=== PATIENT | male | born 1975 ===

== ENCOUNTER → 2023-12-07 06:38 | Day surgery (SDC) | payer BC, SELFPAY | LOC: GI 06:38 | PROVIDERS: ATTENDING PHYSICIAN Surgery | DX: Z12.11 Encounter for screening for malignant neoplasm of colon (principal); K52.89 Other specified noninfective gastroenteritis and colitis; K63.5 Polyp of colon | CPT/HCPCS: 45380; 88305 ==

== ENCOUNTER 2024-06-05 16:57 | Emergency (ER) | payer BC, SELFPAY ==
[2024-06-05 17:06] VITALS: BP 158/103
[2024-06-05 17:40] LABS: % Basophils 1.3 % (0-2); % Eosinophils 3.4 % (0-6); % Immature Granulocytes 0.2 % (0-0.5); % Lymphocytes 39.9 % (20.5-51.1); % Monocytes 5.5 % (1.7-9.3); % Neutrophils 49.7 % (42.2-75.2); Absolute Basophils 0.1 10^3/uL (0-0.2); Absolute Eosinophils 0.3 10^3/uL (0-0.7); Absolute Lymphocytes 3.3 10^3/uL (1.2-3.4); Absolute Monocytes 0.5 10^3/uL (0.1-0.6); Absolute Neutrophils 4.1 10^3/uL (1.4-6.5); Hematocrit 47.4 % (39.0-52.0); Hemoglobin 17.1 g/dL (13.0-18.0); Mean Corp Hgb Conc. 36.1 g/dL (33.0-37.0); Mean Corpuscular Hgb 29.8 pg (27.0-31.0); Mean Corpuscular Volume 82.7 fL (80.0-94.0); Mean Platelet Volume 12.3 fL (7.4-10.4); Nucleated Red Blood Cells % 0 % (-); Platelet Count 242 10^3/uL (130-400); Red Blood Cell Count 5.73 10^6/uL (4.70-6.10); White Blood Cell Count 8.2 10^3/uL (4.8-10.8)
--- NOTE | 2024-06-05 17:46 | ED.GENMED ---
History of Present Illness
General
Chief Complaint: Headache
Time Seen by Provider: 06/05/24 17:46
History of Present Illness
History of Present Illness:
HPI: The patient presents with headache located in the right temporal region which started about 6 days ago. 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 He had gradual onset and progression of the symptoms. The day later,
he developed left-sided chest discomfort which is extremely sensitive to touch and even having a short arm can hurt at times. He does have known diffuse lipomas and wondered if that was a contributing factor. He went to urgent care and they
thought maybe he could have shingles but did not have a rash. They did place him on an antiviral. He has had poor sleep recently.
EXAM:
GENERAL: Well appearing in no distress
HEENT: Moist oral mucosa
CARDIOVASCULAR: No murmurs, normal heart rate, regular rhythm, No chest wall tenderness
PULMONARY: No respiratory distress, breath sounds are clear and equal
ABDOMEN: Soft with no peritoneal signs, no tenderness
NEUROLOGIC: Excellent strength all extremities, no coordination deficits
PSYCHIATRIC: Appropriate mental status, normal insight and judgement
EXTREMITIES: Nontender, no edema, moves all extremities equally
SKIN: Multiple lipomas noted predominantly to the upper extremities but also involves the torso, no evidence of shingles type of rash
TIME OF INITIAL ENCOUNTER: 6 PM
NUMBER AND COMPLEXITY OF PROBLEMS ADDRESSED AT THE ENCOUNTER
� Chronic conditions affecting care: Asthma, multiple lipomas
� Acute Exacerbation and/or Progression of Chronic Illness: This is an acute problem
� Differential Diagnosis includes: Viral syndrome, shingles, neuropathic type of pain, intracranial abnormality
AMOUNT AND/OR COMPLEXITY OF DATA TO BE REVIEWED AND ANALYZED
� I performed an independent evaluation of and my interpretation is:
EKG: Sinus 72, normal axis, no acute ST abnormality
CT: CT head shows no acute abnormality
X-rays:
Laboratory Studies: CBC is unremarkable, chemistries unremarkable
Other:
� Review of other/old records:
� Clinical information was obtained by an independent historian: I spoke to the at bedside
� Prescriptions/Medications Considered but not given:
� Further testing considered but not performed:
RISK OF COMPLICATIONS AND/OR MORBIDITY OR MORTALITY OF PATIENT MANAGEMENT
� Social determinants of health affecting care: Lives at home
� Discussion with other providers:
� Escalation of care including admission/observation vs risk of discharge considered: The patient describes chest discomfort on the left side that is present and worsened by very light touch. He was already started on Valtrex
for the possibly of shingles however he also describes pain on both sides as well as pain in the right side of the head. He did have right temporal pain and sed rate was normal at 5. We tried gabapentin for pain. I did send a prescription for
gabapentin to his pharmacy. The patient reports no significant improvement after gabapentin tried. We had long discussion with patient. Will add very short course of narcotic analgesia and will start steroids in the morning. He seems to have
paresthesias in various parts of his body including the torso and the extremities primarily the upper extremities. CT imaging of the brain was unremarkable.
Past History
Past History
ED Past Medical History: Asthma; Negative HTN, Hypercholesterolemia or NIDDM
ED Past Surgical History: None
Social History
Tobacco: Non-smoker
Alcohol: None
Personal:
Living: with family
Employment: Employed
Phy Exam
Physical Exam
Physical Exam:
See HPI
Course
Orders/Labs/Results
Orders:
Orders
06/05/24 17:13
ECG [Electrocardiogram (*1)] Urgent
Reason for Study: Chest Pain
06/05/24 17:14
EKG- Treatment ONCE
06/05/24 17:21
Complete Blood Count/With Diff Urgent
Comprehensive Metabolic Panel Urgent
Erythrocyte Sed Rate Urgent
Comment: ADD ON
Troponin I Urgent
06/05/24 17:52
Add On- LAB Urgent
Tests Added?: ESR
06/05/24 17:59
CT Head W/o Iv Contrast Urgent
Comment:
Reason For Exam: new STYLES and paresthesias
Gabapentin [Neurontin] 300 mg PO NOW STA
06/05/24 21:27
Oxycodone/Acetaminophen [Percocet 5/325] 1 tablet PO NOW STA
Abnormal Lab Results
06/05/24
17:21
MPV 12.3 H fL
(7.4-10.4)
Glucose 109 H mg/dl
(70-99)
06/05/24 17:21
06/05/24 17:21
Vital Signs
Initial and Last Documented VS:
Initial Vital Signs
Temp Pulse Resp BP Pulse Ox
98.3 F 99 18 158/103 98
06/05/24 17:06 06/05/24 17:06 06/05/24 17:06 06/05/24 17:06 06/05/24 17:06
Last Documented Vital Signs
Temp Pulse Resp BP Pulse Ox
98.3 F 85 18 150/107 98
06/05/24 17:06 06/05/24 21:51 06/05/24 21:51 06/05/24 21:51 06/05/24 17:06
*Critical Care Note
Total Time (30-74mins, 75-104mins- exclusive of procedures): Not Applicable
ED Attending Note
-
Portions of this chart may have been created with voice recognition software.� Occasional wrong word or��sound alike� substitutions may have occurred due to the inherent limitations of voice recognition software.
Discharge Plan
Departure
Patient Disposition: Home (Routine Discharge)
Date of Disposition: 06/05/24
Time of Disposition: 21:08
Patient with high blood pressure during this ER visit?: Yes
Discharge Problem:
Chest wall pain, Headache
Prescriptions:
New
gabapentin 300 mg capsule
300 mg PO TID Qty: 30 0RF
oxycodone-acetaminophen 5-325 mg tablet
1 - 2 tab PO Q8H PRN (Reason: Pain) Qty: 12 0RF
prednisone 50 mg tablet
50 mg PO DAILY Qty: 5 0RF
No Action
metaxalone [Skelaxin] 800 MG tablet
800 mg PO TIDPRN PRN (Reason: pain/spasm) Qty: 12 0RF
Referrals:
Elly Rabago DO [Family Provider] -
Activity Restrictions/Additional Instructions:
The cause of your symptoms is unclear. CAT scan of the brain shows no acute abnormality. Basic blood work is normal. I did send a prescription for gabapentin to your pharmacy. Gabapentin can be sedating I recommend not to drive if you take
gabapentin. I also sent a prescription for Percocet and prednisone. Follow-up your primary care doctor. Return here if worse.
Interventions
Interventions:
*Risk Screen - Suicide Last Done: 06/05/24 17:06
*General Assessment Last Done: 06/05/24 17:06
*Neglect/Abuse Screening Last Done: 06/05/24 17:06
ED- Fall Risk Assessment Last Done: 06/05/24 17:53
*Nursing Disposition Last Done: 06/05/24 21:51
ED- Neurological Assessment Last Done: 06/05/24 17:53
Discharge Date and Time
Discharge Date/Time: 06/05/24 21:52
Print Language: GREENLANDIC
[2024-06-05 17:56] LABS: ALT (SGPT) 39 U/L (0-50); AST (SGOT) 37 U/L (17-59); Albumin 4.5 g/dl (3.5-5.0); Alkaline Phosphatase 88 U/L (38-126); Blood Urea Nitrogen 13 mg/dl (9-20); Calcium 9.7 mg/dl (8.4-10.2); Carbon Dioxide 30 mmol/L (22-30); Chloride 100 mmol/L (98-107); Glucose 109 mg/dl (70-99); Potassium 4.6 mmol/L (3.5-5.1); Sodium 142 mmol/L (135-145); Total Bilirubin 0.5 mg/dl (0.2-1.3); Total Protein 7.6 g/dl (6.3-8.2); eGFR > 60.00
[2024-06-05 18:00] VITALS: BP 162/93
[2024-06-05] MEDS: NEURONTIN 300 MG PO (18:04)
[2024-06-05 18:07] LABS: Troponin I < 0.012 ng/ml
[2024-06-05 18:21] LABS: Erythrocyte Sed Rate 5 mm/hour (0-20)
[2024-06-05] MEDS: PERCOCET 5/325 1 TABLET PO (21:39)
[2024-06-05 21:51] VITALS: BP 150/107
== END 2024-06-05 21:52 | disposition home or self-care (01) ==
LOC: EMR 16:57
PROVIDERS: Emergency Medicine; EMERGENCY PHYSICIAN Emergency Medicine; FAMILY PHYSICIAN Family Medicine
DX: R07.89 Other chest pain (principal); R51.9 Headache, unspecified; R20.2 Paresthesia of skin; R03.0 Elevated blood-pressure reading, without diagnosis of hypertension; J45.909 Unspecified asthma, uncomplicated
CPT/HCPCS: 99284; 70450; 80053; 84484; 85025; 85652; 93005

== ENCOUNTER 2024-06-14 08:49 | Inpatient (IN) | payer BC, SELFPAY ==
[2024-06-11 18:17] VITALS: BP 160/103
[2024-06-11 18:44] LABS: % Basophils 0.8 % (0-2); % Eosinophils 1.9 % (0-6); % Immature Granulocytes 0.7 % (0-0.5); % Lymphocytes 28.6 % (20.5-51.1); % Monocytes 5.9 % (1.7-9.3); % Neutrophils 62.1 % (42.2-75.2); Absolute Basophils 0.1 10^3/uL (0-0.2); Absolute Eosinophils 0.2 10^3/uL (0-0.7); Absolute Immature Granulocytes 0.1 10^3/uL (0-0.05); Absolute Lymphocytes 3.4 10^3/uL (1.2-3.4); Absolute Monocytes 0.7 10^3/uL (0.1-0.6); Absolute Neutrophils 7.5 10^3/uL (1.4-6.5); Hematocrit 49.2 % (39.0-52.0); Hemoglobin 17.8 g/dL (13.0-18.0); Mean Corp Hgb Conc. 36.2 g/dL (33.0-37.0); Mean Corpuscular Hgb 29.6 pg (27.0-31.0); Mean Corpuscular Volume 81.7 fL (80.0-94.0); Mean Platelet Volume 11.4 fL (7.4-10.4); Nucleated Red Blood Cells % 0 % (-); Platelet Count 282 10^3/uL (130-400); Red Blood Cell Count 6.02 10^6/uL (4.70-6.10); Red Cell Dist. Width 13.2 % (11.5-14.5)
[2024-06-11 19:07] LABS: ALT (SGPT) 142 U/L (0-50); AST (SGOT) 97 U/L (17-59); Albumin 4.4 g/dl (3.5-5.0); Alkaline Phosphatase 105 U/L (38-126); Blood Urea Nitrogen 22 mg/dl (9-20); Calcium 9.1 mg/dl (8.4-10.2); Carbon Dioxide 25 mmol/L (22-30); Chloride 97 mmol/L (98-107); Glucose 110 mg/dl (70-99); Potassium 4.1 mmol/L (3.5-5.1); Sodium 137 mmol/L (135-145); Total Bilirubin 0.5 mg/dl (0.2-1.3); Total Protein 7.6 g/dl (6.3-8.2); eGFR > 60.00
[2024-06-11 22:10] VITALS: BP 161/103
--- NOTE | 2024-06-11 22:34 | ED.GENMED ---
History of Present Illness
<RASHAUN Huff - Last Filed: 06/12/24 03:33>
General
Chief Complaint: Generalized Pain
Source: patient and spouse
Exam Limitations: none
Time Seen by Provider: 06/11/24 22:14
History of Present Illness
History of Present Illness:
This is a 48 year old male that comes in with c/o pain in the arms and leg and body. states that on May 30 he started with a headache. State that this continued on the and . States that on Tuesday he started with itching on the
left shoulder and chest. States that he would feel hot and cold. States that he also felt like something was dripping form the right eye. States that he went to and he was given Antivirals which he finished yesterday. Stats that he is not better.
States that he has this burning in his arm and tingling in the hands. State that on Tuesday he went to see the PCP and was told to come to the ER. States that he was given pain medication and place on Gabapentin and a steroid taper. State that he
was also given Percocet. States that the Percocet helped at first and then it would not last as long. States that he gets hot flashes in his legs and chest. States that his arms feel like he has had his hands in cold water and they hurt when you
touch them. States that he does have a right sided headache. Denies any fever, chills, chest pain, SOB, abd pain, nausea, vomiting, diarrhea, dizziness, urinary burning.
Past History
<RASHAUN Huff - Last Filed: 06/12/24 03:33>
Past History
ED Past Medical History: Asthma; Negative HTN, Hypercholesterolemia or NIDDM
ED Past Surgical History: Other (Lipoma removed)
Social History
Tobacco: Non-smoker
Alcohol: None
Personal:
Living: with family
Employment: Employed
Review of Systems
<RASHAUN Huff - Last Filed: 06/12/24 03:33>
Review of Systems
All Other Systems: ROS reviewed and negative except as documented in HPI and ROS
Constitutional: Reports no symptoms; Denies fever or chills
EENT: Reports no symptoms
Respiratory: Reports no symptoms; Denies cough or trouble breathing
Cardiac: Reports no symptoms; Denies chest pain
ABD/GI: Reports no symptoms; Denies abdominal pain, nausea, vomiting or diarrhea
: Reports no symptoms; Denies dysuria, frequency or urgency
Musculoskeletal: Reports no symptoms
Skin: Reports other (arms and leg get hot flashes and hands feel like they have been in ice water. States that the skin on his chest hurts. )
Neurological: Reports headache; Denies dizzy
Psychiatric: Reports no symptoms
Phy Exam
<RASHAUN Huff - Last Filed: 06/12/24 03:33>
General Physical Exam
General Presentation: mild distress
General age: appears stated age
General Skin: warm and dry
General Habitus: normal
General Mental: alert
General Hydration: dry mucous membranes
ENT Exam
ENT Exam: TM's normal, pharynx normal and neck supple
Eye Exam
Eye Exam: EOMI
Cardiovascular Exam
Cardiovascular Exam: regular rate/rhythm, no edema, no murmur and normal peripheral pulses
Pulmonary Exam
Pulmonary Exam: lungs clear, no respiratory distress, no rales, chest non tender, no crackles, no rhonchi, no wheezing and no cough
Gastrointestinal Exam
Gastrointestinal Exam: normal bowel sounds, non tender, soft, no organomegaly, no pulsatile mass and non distended
Musculoskeletal Exam
Musculoskeletal Exam: full ROM and no edema
Skin Exam
Skin Exam: normal color, warm/dry, no rash and no petechia
Psychiatric Exam
Psychiatric Exam: normal mood/affect
Course
<RASHAUN Huff - Last Filed: 06/12/24 03:33>
Orders/Labs/Results
Orders:
Orders
06/11/24 18:15
Electrocardiogram (*1) Urgent
Reason for Study: Chest Pain
EKG- Treatment ONCE
06/11/24 18:28
Complete Blood Count/With Diff Urgent
Comprehensive Metabolic Panel Urgent
06/11/24 22:34
0.9% Sodium Chloride 1000 ml [Nss] 1,000 ml IV BOLUS
Gabapentin [Neurontin] 300 mg PO NOW STA
HYDROmorphone [Dilaudid] 1 mg IV NOW STA
06/11/24 23:14
Alcohol Urgent
COVID-19 Antigen Urgent
Source: Nasal Swab
CPK [Creatine Phosphokinase] Urgent
CRP [C-Reactive Protein] Urgent
Drug Screen, Urine [Urine Drug Abuse Screen] Urgent
Date Specimen was Collected: 06/11/24
Time Specimen was Collected: 23:06
ESR [Erythrocyte Sed Rate] Urgent
Fentanyl, Urine Urgent
TSH Reflex To Free T4 Urgent
Urinalysis Reflex To Culture Urgent
Date Specimen was Collected: 06/11/24
Time Specimen was Collected: 23:06
06/12/24 00:15
Ct Chest/Abd/Pel Angio W/Wo Iv Urgent
Reason For Exam: Generalized body pain, Tingling
06/12/24 02:21
Troponin I Urgent
06/12/24 02:29
HydrALAZINE [Apresoline] 5 mg IV NOW STA
Abnormal Lab Results
06/11/24 06/11/24
18:28 23:14
WBC 12.0 H 10^3/uL
(4.8-10.8)
MPV 11.4 H fL
(7.4-10.4)
Abs Immat Gran (auto) 0.1 H 10^3/uL
(0-0.05)
Absolute Neuts (auto) 7.5 H 10^3/uL
(1.4-6.5)
Absolute Monos (auto) 0.7 H 10^3/uL
(0.1-0.6)
Immature Gran % 0.7 H %
(0-0.5)
Chloride 97 L mmol/L
(98-107)
BUN 22 H mg/dl
(9-20)
Glucose 110 H mg/dl
(70-99)
AST 97 H U/L
(17-59)
ALT 142 H U/L
(0-50)
Creatine Kinase 50 L U/L
(55-170)
Ur Oxycodone Screen Positive H
(Negative)
06/11/24 18:28
06/11/24 18:28
Leukocytosis, Dehydration. Glucose nonfasting. AST/ALT elevation. when compared with prior labs, CRP normal at 9.70, Sed rate normal t 7, CPK slightly elevated. TSH normal at 2.07, Urine negative for infection. Urine is negative for infection,
Urine drug positive for Oxycodone (patient has been taking at home), Fentanyl negative, Negative for alcohol COVID negative.
Vital Signs
Initial and Last Documented VS:
Initial Vital Signs
Temp Pulse Resp BP Pulse Ox
98.4 F 106 16 160/103 98
06/11/24 18:17 06/11/24 18:17 06/11/24 18:17 06/11/24 18:17 06/11/24 18:17
Last Documented Vital Signs
Temp Pulse Resp BP Pulse Ox
99.6 F 91 12 159/104 96
06/11/24 23:50 06/12/24 02:20 06/12/24 02:20 06/12/24 02:20 06/12/24 02:20
<Tylor Dumont MD - Last Filed: 06/11/24 23:05>
Orders/Labs/Results
Orders:
Orders
06/11/24 18:15
Electrocardiogram (*1) Urgent
Reason for Study: Chest Pain
EKG- Treatment ONCE
06/11/24 18:28
Complete Blood Count/With Diff Urgent
Comprehensive Metabolic Panel Urgent
06/11/24 22:34
0.9% Sodium Chloride 1000 ml [Nss] 1,000 ml IV BOLUS
Gabapentin [Neurontin] 300 mg PO NOW STA
HYDROmorphone [Dilaudid] 1 mg IV NOW STA
06/11/24 23:14
Alcohol Urgent
COVID-19 Antigen Urgent
Source: Nasal Swab
CPK [Creatine Phosphokinase] Urgent
CRP [C-Reactive Protein] Urgent
Drug Screen, Urine [Urine Drug Abuse Screen] Urgent
Date Specimen was Collected: 06/11/24
Time Specimen was Collected: 23:06
ESR [Erythrocyte Sed Rate] Urgent
Fentanyl, Urine Urgent
TSH Reflex To Free T4 Urgent
Urinalysis Reflex To Culture Urgent
Date Specimen was Collected: 06/11/24
Time Specimen was Collected: 23:06
06/12/24 00:15
Ct Chest/Abd/Pel Angio W/Wo Iv Urgent
Reason For Exam: Generalized body pain, Tingling
06/12/24 02:21
Troponin I Urgent
06/12/24 02:29
HydrALAZINE [Apresoline] 5 mg IV NOW STA
Abnormal Lab Results
06/11/24 06/11/24
18:28 23:14
WBC 12.0 H 10^3/uL
(4.8-10.8)
MPV 11.4 H fL
(7.4-10.4)
Abs Immat Gran (auto) 0.1 H 10^3/uL
(0-0.05)
Absolute Neuts (auto) 7.5 H 10^3/uL
(1.4-6.5)
Absolute Monos (auto) 0.7 H 10^3/uL
(0.1-0.6)
Immature Gran % 0.7 H %
(0-0.5)
Chloride 97 L mmol/L
(98-107)
BUN 22 H mg/dl
(9-20)
Glucose 110 H mg/dl
(70-99)
AST 97 H U/L
(17-59)
ALT 142 H U/L
(0-50)
Creatine Kinase 50 L U/L
(55-170)
Ur Oxycodone Screen Positive H
(Negative)
06/11/24 18:28
06/11/24 18:28
Vital Signs
Initial and Last Documented VS:
Initial Vital Signs
Temp Pulse Resp BP Pulse Ox
98.4 F 106 16 160/103 98
06/11/24 18:17 06/11/24 18:17 06/11/24 18:17 06/11/24 18:17 06/11/24 18:17
Last Documented Vital Signs
Temp Pulse Resp BP Pulse Ox
99.6 F 91 12 159/104 96
06/11/24 23:50 06/12/24 02:20 06/12/24 02:20 06/12/24 02:20 06/12/24 02:20
<RASHAUN Huff - Last Filed: 06/12/24 03:33>
MDM/Problems Addressed
Differential Diagnosis Includes:
Nerve pain, Guillain barre syndrome
MDM/Problems Addressed:
This is a 47 year old male that comes in with c/o his arms, chest sensitive and his legs have hot flashes but no pain. states that this started on May 30. Patient has been seen here and by his PCP. States that he took Percocet, Antiviral which
he finished and Prednisone taper. States that nothing has helped.
Will get labs, Medicate for pain and have. Dr. Dumont see patient.
Back into see patient. Explained that his CT is normal. His Blood work shows that his liver enzymes have elevated. Explained that this may be a viral syndrome and he may just have to wait it out. Patient states that his pain is coming back. Offered
patient observation tonight or he could go home and wait this out. Patient states that since his pain is coming back he would rather stay. Hospitalist notified.
Chronic conditions affecting care:
NA
Acute Exacerbation and/or Progression of Chronic Illness:
NA
<RASHAUN Huff - Last Filed: 06/12/24 03:33>
*Radiology
Radiology exam reviewed: radiology read reviewed (CT night hawk-NO definite CT findings to account for the reported pain symptomes. Ateleactasis versus scarring at the right lower lobe. NO focal airspace consolidation. No pleural effusion or
pneumothorax. No appendicitis or colitis. No evidence of small bowel obstruction. No free fluid or free air.) and all reviewed NAD by ED Provider (CT cont- Mild distention of the gallbladder without surrounding inflammatory change. Normal caliber
CBD. Unremarkable appearance of the pelvic Viscera. No AAA. Degenerative changes in the hips. )
*Pulse Oximetry
Patient hypoxic: no
*EKG
Interpreted by ED Provider?: NA
Rate: EKG- N/A
*Robotics Mechanic Interpretation
Rate: Robotics Mechanic- N/A
*Critical Care Note
Total Time (30-74mins, 75-104mins- exclusive of procedures): Not Applicable
ED Attending Note
<RASHAUN Huff - Last Filed: 06/12/24 03:33>
-
Portions of this chart may have been created with voice recognition software.� Occasional wrong word or��sound alike� substitutions may have occurred due to the inherent limitations of voice recognition software.
<Tylor Dumont MD - Last Filed: 06/11/24 23:05>
ED Attending Note
Patient seen and examined by attending physician: Yes
ED Attending Note:
I have seen and evaluated the patient with a [id number] encounter. I have spoken to the advance practicer provider and involved in the medical history, the physical exam, medical decision making.
Evaluation and management service: agree unless noted differently below.
Results interpretation: agree unless noted differently below.
Focused HPI: 48-year-old male with a past medical history of asthma who presents to the emergency room for evaluation of whole body pain. This is patient's second visit to the emergency room for this issue (here 06/05/2024). Patient reports onset of
symptoms 05/30/2024 and have been constant and progressive since then. He reports that symptoms initially started while he was at work�he says he had a stressful meeting and then went to the dentist office and then afterwards had right
sided headache. He says that and Tuesday headache persisted and he tried treating with NSAIDs without any improvement. Tuesday he began to have 'itchy' sensation under his left scapula which eventually progressed to pain in the area as
well as pain on his chest which he describes as 'on the skin' right over his sternum. He says he also started to have shooting pains in the right eyebrow. He says that 06/03/2024 he began having sensation of pain, numbness and paresthesias
in both arms�'like they are freezing cold.' Decided to go to urgent care to be evaluated and he says that he was told that his symptoms could be from early shingles. He was started on Valtrex. He took Valtrex and symptoms actually worsened he
began having essentially whole body paresthesias and pain/sensitivity. He began having hot flashes he says. On 06/05/2024 he went to his primary care physician and was referred to the ER to be evaluated. Here he had EKG, lab work, CT head
which was nondiagnostic. He was urged to finish course of Valtrex was prescribed gabapentin and oxycodone as well as a short course of prednisone 50 mg x 5 days. He says that the oxycodone did manage his pain reasonably well but paresthesias
persisted; he says that efficacy of opioids has decreased and he feels symptoms overall are worsening and so he returns to the emergency room this evening. In summary primary symptoms are: Right sided headache, superficial chest/left scapular pain,
whole body paresthesias and sensation of numbness most pronounced in the upper extremities. He denies any rash. He denies feeling short of breath. He says he has been constipated from oxycodone, no nausea, vomiting, diarrhea. He denies any
urinary symptoms. He has been regularly checking his skin for rash and has not noticed any rash. While he does have paresthesias and numbness he denies feeling weak at all extremities and has been ambulatory without weakness. He denies any loss
of vision, speech difficulties. He denies any fevers or chills although again describes occasional 'hot flashes.' He denies any similar symptoms in the past. He denies smoking, alcohol, drug use. He does not take any chronic medications.
Physical exam: Patient appears uncomfortable, tremulous and restless in the bed complaining of pain. He is hypertensive and tachycardic. Afebrile, normal respiratory rate, normal pulse ox on room air. He has no audible cardiac rubs gallops or
murmurs; he has equal strong palpable symmetric pulses bilaterally radial, femoral, DP and PT. His lungs are clear to auscultation bilaterally. He has no abdominal masses and no reproducible tenderness in the abdomen. His cranial nerves are
intact, motor function intact in all extremities. He reports diminished sensation subjectively throughout all extremities no focal sensory deficit noted.
Medical Decision Makin-year-old male presents for evaluation of symptoms as described above. Symptoms have been ongoing for 2 weeks now and generally worsening. Had CT head as his initial presenting symptom was headache and this was negative.
Also had EKG and troponins which were unremarkable. Vital signs are abnormal he is notably hypertensive here, was hypertensive during prior visit as well--likely pain related but with odd distribution of symptoms and report of chest pain and pain
in the rest of the body will rule out for dissection with CTA chest/abdomen/pelvis. Send labs including a CBC and a CMP, CPK, ESR, CRP, thyroid studies. Swab for COVID. Treat symptoms. Reassess after the above.
Discharge Plan
Departure
Patient Disposition: Admit
Date of Disposition: 06/12/24
Time of Disposition: 02:23
Admit to: Med/Surg
Presentation/result/management discussed w/ accepting MD/DO: Hospitalist
Patient with high blood pressure during this ER visit?: Yes
Condition: Good
Covid-19: Negative COVID-19
Discharge Problem:
GENERALIZED BODY PAIN
Prescriptions:
No Action
prednisone 50 mg tablet
50 mg PO DAILY Qty: 5 0RF
oxycodone-acetaminophen 5-325 mg tablet
1 - 2 tab PO Q6H
gabapentin 300 mg capsule
600 mg PO TID
Referrals:
Elly Rabago DO [Family Provider] -
Interventions
Interventions:
*Risk Screen - Suicide Last Done: 06/11/24 21:13
*General Assessment Last Done: 06/11/24 21:53
*Neglect/Abuse Screening Last Done: 06/11/24 21:13
ED- Fall Risk Assessment Last Done: 06/11/24 21:50
*ED COVID-19 Vaccine History Last Done: 06/11/24 21:53
ED- Neurological Assessment Last Done: 06/11/24 23:10
Discharge Date and Time
Print Language: HUNGARIAN
[2024-06-11] MEDS: DILAUDID 1 MG IV (23:31)
[2024-06-11] MEDS: NEURONTIN 300 MG PO (23:31)
[2024-06-11] MEDS: NSS 1000 IV (23:32)
[2024-06-11 23:57] LABS: Urine Albumin Negative (Neg - Trace); Urine Bilirubin Negative (Negative); Urine Character Clear (Clear); Urine Color Straw; Urine Glucose Negative (Negative); Urine Ketone Negative (Negative); Urine Leukocyte Negative (Negative); Urine Nitrite Negative (Negative); Urine Occult Blood Negative (Negative); Urine Urobilinogen Negative (Neg - 1+)
[2024-06-12] VITALS (7 sets, daily range): BP systolic 126–163; BP diastolic 71–104; BMI 29.3
[2024-06-12 00:05] LABS: COVID-19 Antigen Negative (Negative)
[2024-06-12 00:11] LABS: Amphetamines Negative (Negative); Barbiturates Negative (Negative); Benzodiazepines Negative (Negative); Buprenorphine Negative (Negative); Cocaine Negative (Negative); Marijuana Negative (Negative); Methadone Negative (Negative); Methamphetamines Negative (Negative); Opiates Negative (Negative); Phencyclidine Negative (Negative); Tricyclic Antidepressants Negative (Negative)
[2024-06-12 00:31] LABS: Fentanyl, Urine Negative (Negative)
[2024-06-12 00:47] LABS: TSH Reflex To Free T4 2.07 uIU/ml (0.47-4.68)
[2024-06-12 01:02] LABS: Creatine Phosphokinase 50 U/L (55-170)
[2024-06-12 01:03] LABS: Alcohol None Detected
[2024-06-12 01:12] LABS: Erythrocyte Sed Rate 7 mm/hour (0-20)
[2024-06-12] MEDS: APRESOLINE 5 MG IV (03:42)
--- NOTE | 2024-06-12 03:51 | HPS.HSE ---
Family Physician
-
Family Physician: Elly Rabago DO
Chief Complaint
-
Pain
History of Present Illness
Patient is a 48y M with PMH significant for familial lipomatosis who presents to ED complaining of pain syndrome. Patient states that he started with a R sided headache about 2 weeks ago. The pain radiated towards his R eye and R cheek. He
took Motrin and Tylenol without any improvement in his symptoms. He then developed itching and then pain in the L posterior shoulder / scapula area. This pain then radiated around to his L chest. He presented to an Urgent Care and was placed on
Valtrex for presumed shingles. His symptoms did not improve.
He has since developed similar shooting pains in the arms bilaterally (L > R), the abdomen and - less frequently - in the legs.
He describes severe, shooting pain when it occurs. He reports significant sensitivity of the skin and notes that clothing, sheets, etc are unbearable due to the degree of sensitivity.
He describes a flushed / warm sensation that seems to precede the pain. He reports occasional sense of tingling / numbness in the arms bilaterally.
Patient was seen here in the ED on 06/05/24 for these complaints. He was discharged on gabapentin Percocet and prednisone.
His evaluation at that time including CT head and ESR was unremarkable.
Patient returns to the ED today complaining of persistent symptoms. He states that the gabapentin appears unhelpful. His pain does improve after taking the Percocet - but recurs again after 5-6 hours.
He has no rashes. No fevers / chills. No vision changes.
Medical History
Past Medical History
Past Medical History: Reports Other
Additional Past Medical History:
Familial Lipomatosis
Past Surgical History: Reports Other
Additional Past Surgical History:
Lipoma Excisions
Social History
Tobacco: Non-smoker
Alcohol: None
Drug: None
Family History
Family History: Other (Familial Lipomatosis)
Allergies / Home Medications
Allergies reflects when Allergies were last updated in [facility].
Home Medications with original date entered in [facility]
Allergy/Medication List:
Allergies
Allergy/AdvReac Type Severity Reaction Status Date / Time
No Known Allergies Allergy Verified 06/11/24 18:21
Home Medications
prednisone 50 mg tablet 50 mg PO DAILY #5 tabs 06/05/24
gabapentin 300 mg capsule 600 mg PO TID 06/12/24
oxycodone-acetaminophen 5 mg-325 mg tablet 1 - 2 tab PO Q6H 06/12/24
Review of Systems
-
History Source: Patient
A 12 point ROS was completed and negative except as noted: Yes
Constitutional: Reports Sleep Disturbance; Denies Fever or Chills
Respiratory: Denies Cough or Trouble Breathing
Cardiac: Reports Chest Pain; Denies Palpitations
Abdomen/GI: Reports Abdominal Pain; Denies Nausea, Vomiting or Diarrhea
: Denies Dysuria, Frequency or Flank Pain
Musculoskeletal: Denies Joint Pain or Edema
Skin: Reports Itching; Denies Rash
Neurological: Reports Headache and Numbness; Denies Dizzy or Weakness
Psych: Denies Depression or Anxiety
Physical Exam
Vital Signs
Vital Signs
Temp Pulse Resp BP Pulse Ox
99.6 F 104 12 156/99 96
06/11/24 23:50 06/12/24 03:42 06/12/24 02:20 06/12/24 03:42 06/12/24 02:20
Physical Exam
General: Other (48y M in no acute distress.)
HEENT: Moist mucous membranes and PERRLA
Respiratory: Clear; No Wheezes, Rales or Rhonchi
Cardiac: S1/S2 and Regular Rhythm; No Murmur
GI: Soft, Non Tender, Non Distended and Normal Bowel Sounds
Musculoskeletal: No Clubbing, No Cyanosis and No Edema
Skin: Other (Scattered lipomas over primarily the extremities. No vesicular rash / pustular lesions.)
Neuro: AO x 3 and Nonfocal/grossly intact
Laboratory Results
-
06/11/24 18:28
06/11/24 18:
Laboratory Results
Total Bilirubin 0.5 mg/dl (0.2-1.3) 06/11/24 18:28
AST 97 U/L (17-59) H 06/11/24 18:28
ALT 142 U/L (0-50) H 06/11/24 18:28
Alkaline Phosphatase 105 U/L (38-126) 06/11/24 18:
Impression/Plan
-
A/P: Patient is a 48y M with PMH significant for familial lipomatosis who presents to ED complaining of about 10 days of progressive pain / dysesthesia.
Dysesthesia
Headache
- Observe overnight for further evaluation and treatment.
- Work-up thus far has been unremarkable - including inflammatory markers, CT head and CTA C/A/P.
- Patient notes that pain is controlled only with Percocet and only temporarily.
- Wide distribution of symptoms that seems to be progressing / increasing with time - but in a 'top-down' fashion.
- Continue supportive care. Pain control as needed - but patient aware that detention opioids is not a solution.
- Trial of duloxetine for symptoms improvement.
- Neurology evaluation for any additional recommendations / work-up.
- Patient notes that he had MRI of his back done at [facility] about one month ago - will send for those results.
DVT Prophylaxis: Lovenox
Code Status: Full
[2024-06-12] MEDS: ROXICODONE 10 MG PO ×4 (03:53→21:48)
[2024-06-12 04:37] LABS: Troponin I 0.019 ng/ml
--- NOTE | 2024-06-12 06:40 | TRANSFER ---
received pt from ED via stretcher. pt walked to his bed. oriented to room, call norris within reach, VSS. plan of care ongoing.
[2024-06-12 07:29] LABS: Hematocrit 47.2 % (39.0-52.0); Hemoglobin 16.9 g/dL (13.0-18.0); Mean Corp Hgb Conc. 35.8 g/dL (33.0-37.0); Mean Corpuscular Hgb 30.1 pg (27.0-31.0); Mean Corpuscular Volume 84.1 fL (80.0-94.0); Mean Platelet Volume 11.6 fL (7.4-10.4); Platelet Count 229 10^3/uL (130-400); Red Blood Cell Count 5.61 10^6/uL (4.70-6.10); Red Cell Dist. Width 13.2 % (11.5-14.5); White Blood Cell Count 8.8 10^3/uL (4.8-10.8)
[2024-06-12] MEDS: CYMBALTA DELAYED RELEASE 30 MG PO (07:47)
[2024-06-12] MEDS: TORADOL 15 MG IV (07:48)
[2024-06-12 07:58] LABS: Blood Urea Nitrogen 14 mg/dl (9-20); Calcium 8.9 mg/dl (8.4-10.2); Carbon Dioxide 27 mmol/L (22-30); Chloride 100 mmol/L (98-107); Estimated Creatinine Clearance 115 ml/min; Glucose 122 mg/dl (70-99); Potassium 3.9 mmol/L (3.5-5.1); Sodium 138 mmol/L (135-145); eGFR > 60.00
[2024-06-12] MEDS: DILAUDID 0.25 MG IV ×3 (08:50→18:15)
[2024-06-12 09:14] LABS: Glycohemoglobin (HgbA1c) 5.4 % (4.0-5.6)
--- NOTE | 2024-06-12 12:16 | CON.NEURO4 ---
Consultation - Neurology 4
-
CONSULTING PHYSICIAN: Carmella
REFERRING PHYSICIAN: hospitalist
DICTATED BY: Carmella
DATE/TIME OF REQUEST: 06/12/24 in am
DATE/TIME OF CONSULTATION: 06/12/24 at 1130
Reason for Consultation: pain
History of Present Illness:
48 year-old male with a history of LBP and familial lipomatosis admitted for severe migrating neuropathic pain of unclear etiology. States that over a month ago he went to the [facility] in the [facility], had severe LBP after returning
home and was seen at [facility]. He was put on Flexeril and started physical therapy and this seemed to help. On May 30 he developed a severe right-sided headache after going to the dentist. This was on a particularly hot day where it
was 105 �F. He took Tylenol 3 times a day for a few days but head pain seemed to worsen. He then developed itching sensation below his shoulder blades and then it 'felt hot and then cold.' A day later he developed what felt like an electrical
shock sensation over his right eye with sensitivity area.He also had a twitching sensation in his right lower face. In the following days he developed central chest pain with what sounds like allodynia. Then he developed numbness in skin
sensitivity down both arms. More recently he has developed shocklike pain down into his left lower extremity. No bulbar symptoms, bowel or bladder incontinence, visual symptoms. No muscle weakness. He was started on antiviral and steroids. He
has been seen at urgent care during the course of this. He has had a head CT but no MRIs. He was also started on gabapentin which was titrated from 300 3 times daily to 600 3 times daily with no improvement in his symptoms. Percocet does seem to
help a bit but wears off after few hours and then the pain is again severe.
He works as an associate attorney locally.
Past Medical History:
Familial Lipomatosis
low back pain
Past Surgical History:
Lipoma Excisions
Social History
Tobacco: Non-smoker
Alcohol: None
Drug: None
Works as an associate attorney in solo practice
Family History: Familial Lipomatosis
Allergies
No Known Allergies Allergy (Verified 06/11/24 18:21)
Home Medications
�Medication �Instructions �Recorded
prednisone 50 mg tablet 50 mg PO DAILY #5 tabs 06/05/24
gabapentin 300 mg capsule 600 mg PO TID 06/12/24
oxycodone-acetaminophen 5 mg-325 1 - 2 tab PO Q6H 06/12/24
mg tablet
Review of Symptoms:
Patient denies any fever, shortness of breath, GI or symptoms.
�Per the HPI.�All systems are reviewed negative except above.
Vital Signs
Temp Pulse Resp BP Pulse Ox
97.9 F 89 18 163/100 97
06/12/24 07:25 06/12/24 07:25 06/12/24 07:25 06/12/24 07:25 06/12/24 08:00
Lab Results
06/12/24 06:50
06/12/24 06:50
Sodium 138 mmol/L (135-145) 06/12/24 06:50
Potassium 3.9 mmol/L (3.5-5.1) 06/12/24 06:50
BUN 14 mg/dl (9-20) 06/12/24 06:50
Glucose 122 mg/dl (70-99) H 06/12/24 06:50
Calcium 8.9 mg/dl (8.4-10.2) 06/12/24 06:50
Ur Buprenorphine Cancelled 06/11/24 23:14
Ur Buprenorphine Negative (Negative) 06/11/24 23:14
Physical Exam:
The patient is afebrile, heart sounds S1 and S2 are regular, and chest is clear to auscultation bilaterally.
Neurologic Examination:
The patient is awake, alert and oriented x 3. He is able to follow commands and answer questions appropriately. There is no aphasia or dysarthria. On cranial nerve assessment, pupils are 3 mm bilateral, round and reactive to light and
accommodation. Visual delarosa are full. Extraocular movements are intact. There is no facial asymmetry. Hearing is intact bilaterally to normal conversation volume. Tongue palate and uvula are midline. Sternocleidomastoid strengths are full
bilaterally. Motor strengths are 5/5 bilateral upper and lower extremities on medical research [place] scale. There is no drift or involuntary movement noted. Deep tendon reflexes are 2+ bilateral upper and lower extremities and Babinski is absent
bilaterally. No clear sensory level. There was no extinction noted on double simultaneous stimulation. R face, V1-V3, diminished to temperature. Coordination is intact by finger to nose bilaterally.
Neuro Imaging:
HCT: no acute findings
CTA chest/abd/pelvis:
No evidence of thoracic/abdominal aortic aneurysm or dissection.
No acute abnormality throughout the chest, abdomen and pelvis.
Borderline prominent size gallbladder without gross focal intrinsic abnormality.
Impression:
SHERRY HDALEY is a 48 year old M who has presented to the hospital with gradual worsening of neuropathic pain that started in his R face with associated headache later moving into BUE, anterior chest wall, anterior abdomen and now radiating into
his LLE.
Differentials for the patient's presentation include:
1. demyelinating disease, transverse myelitis
2. spinal stenosis
3. neuropathic pain due to viral infection
4. complex regional pain syndrome
5. manifestation of anxiety
Recommendations:
1. check MRI brain, C and T spines w/wo contrast
2. check bloodwork for metabolic causes: HAO, ds-DNA, RA, ANCA, ESR, CRP, Vit E/B12, copper, ceruloplasmin, folate, MMA, homocysteine, HIV, RPR, Lyme, VZV, HTLV-1
3. if testing is negative, consider LP, EMG/NCS, may be done as outpatient
4. continue duloxetine; limit opioids
5. continue neurochecks
Discussed patient care with: patient, patient's , patient's family member who is a physician, nursing
[2024-06-12 14:58] LABS: Erythrocyte Sed Rate 7 mm/hour (0-20)
[2024-06-12 15:16] LABS: Vitamin B12 585 pg/ml (239-931)
--- NOTE | 2024-06-12 16:33 | CM ---
Alert awake oriented patient who lives with his Iliana who lives in a 2 story home with 2 step to enter and 12 steps to bed and bathroom. He is independent in driving and in all activities of daily living.He was offered VN he declined
need.Observation letter explained to pt. Copy left with pt . Pt refused to sign.
No VN hx / No SNF history
Pharmacy [facility]
PCP DR Rabago
PLAN Home Declined VN
--- NOTE | 2024-06-12 17:33 | W.PN.HOSP.TC ---
Today's Communication/Plan
-
MRI as below
Lab tests ordered by neurology -- follow-up
May need transfer to [facility] depending on test results
Assessment / Plan
Assessment / Plan
Physical Exam
General: Other (48y M in no acute distress.)
HEENT: Moist mucous membranes and PERRLA
Respiratory: Clear; No Wheezes, Rales or Rhonchi
Cardiac: S1/S2 and Regular Rhythm; No Murmur
GI: Soft, Non Tender, Non Distended and Normal Bowel Sounds
Musculoskeletal: No Clubbing, No Cyanosis and No Edema
Skin: Other (Scattered lipomas over primarily the extremities. No vesicular rash / pustular lesions.)
Neuro: AO x 3 and Nonfocal/grossly intact
Assessment/Plan
Patient is a 48y M with PMH significant for familial lipomatosis who presents to ED complaining of about 10 days of progressive pain / dysesthesia. He was prescribed Valtrex, gabapentin, Percocet and prednisone without significant, lasting relief.
Dysesthesia
Headache
Supersensitivity Sensation in bilateral arms, chest and head
Hot Flashes Sensation in the Bilateral Lower Extremities
Neuropathic Pain Suspected to be from demyelinating disease, transverse myelitis, spinal stenosis, neuropathic pain due to viral infection, complex regional pain syndrome, and possibly also manifestation of anxiety
- Work-up thus far has been unremarkable - including inflammatory markers, CT head and CTA C/A/P.
- Patient notes that pain is controlled only with Percocet and only temporarily.
- Continue supportive care. Pain control as needed - but patient aware that buttermaker continuous churn opioids is not a solution.
- Trial of duloxetine for symptoms improvement.
- Neurology evaluation for any additional recommendations / work-up.
- Patient noted that he had MRI of his back done at [facility] about one month ago for back muscles spasms
- MRI brain, C and T spines w/wo contrast
- Follow-up results of HAO, ds-DNA, RA, ANCA, ESR, CRP, Vit E/B12, copper, ceruloplasmin, folate, MMA, homocysteine, HIV, RPR, Lyme, VZV, HTLV-1
- If above testing is negative, consider LP, EMG/NCS, but will also consider transfer to [facility]
- Continue duloxetine
- Narcotic pain medications should be limited as much as possible
- Continue neurochecks
DVT Prophylaxis: Lovenox
Code Status: Full Code
Anticipated Discharge: > 48 hours
Subjective/Interval History
-
Date of Service: June 12, 2024
Patient was seen and examined. He reported continued pain, hyper-sensitivity sensation and in his lower extremities, hot flashes.
Objective Data
-
Labs:
Laboratory Results
06/12/24
06:50
WBC 8.8
Hgb 16.9
Hct 47.2
Plt Count 229
Sodium 138
Potassium 3.9
Chloride 100
Carbon Dioxide 27
BUN 14
Creatinine 0.8
Glucose 122 H
Calcium 8.9
Vital Signs:
Vital Signs
Temp Pulse Resp BP Pulse Ox
97.6 F 80 16 151/86 97
06/12/24 15:35 06/12/24 15:35 06/12/24 15:35 06/12/24 15:35 06/12/24 15:35
[2024-06-13] MEDS: DILAUDID 0.25 MG IV (02:22)
[2024-06-13] MEDS: ROXICODONE 10 MG PO ×5 (04:24→21:23)
[2024-06-13 06:29] VITALS: BP 143/88
[2024-06-13] MEDS: CYMBALTA DELAYED RELEASE 30 MG PO (07:14)
--- NOTE | 2024-06-13 09:56 | W.PN.HOSP.TC ---
Today's Communication/Plan
-
EMG/NCS
T-Spine MRI when able
Lab tests pending
Stopped Dilaudid
Resumed Gabapentin
Appreciate neurology
Assessment / Plan
Assessment / Plan
Physical Exam
General: Not in acute distress.
HEENT: Moist mucous membranes.
Respiratory: CTAB.
Cardiac: S1/S2 and Regular Rhythm
GI: Soft, Non Tender, Non Distended and Normal Bowel Sounds
Musculoskeletal: No Cyanosis and No Edema
Skin: Other (Scattered lipomas over primarily the extremities. No vesicular rash / pustular lesions.)
Neuro: AO x 3 and Nonfocal/grossly intact
Assessment/Plan
Patient is a 48y M with PMH significant for familial lipomatosis who presents to ED complaining of about 10 days of progressive pain / dysesthesia. He was prescribed Valtrex, gabapentin, Percocet and prednisone without significant, lasting relief.
Dysesthesia
Headache
Supersensitivity Sensation in bilateral arms, chest and head
Hot Flashes Sensation in the Bilateral Lower Extremities
Neuropathic Pain Suspected to be from demyelinating disease, transverse myelitis, spinal stenosis, neuropathic pain due to viral infection, complex regional pain syndrome, and possibly also manifestation of anxiety
- Patient noted on admission that pain is controlled only with Percocet and only temporarily.
- Continue supportive care. Pain control as needed - but patient aware that assisted opioids is not a solution.
- Trial of duloxetine for symptoms improvement -- started at 30 mg once daily, can be increased in 1 to 2 weeks if being tolerated and no side effects.
- Neurology evaluation
- MRI brain, C-Spine done however awaiting MRI T spines w/wo contrast
- Will discuss with neurosurgery findings of MRI C-Spine (degenerative changes, disc bulges and canal stenosis)
- Follow-up results of HAO, ds-DNA, RA, ANCA, ESR (normal), CRP (elevated at 14.3), Vit E/B12 (B12 levels normal), copper, ceruloplasmin, folate (normal), MMA, homocysteine, HIV, RPR, Lyme, VZV, HTLV-1
- EMG/NCS 4 limbs to be performed by Dr. Merlos
- If above testing is negative, consider LP, EMG/NCS, will also consider transfer to [facility]
- Narcotic pain medications should be limited as much as possible -- stopped Dilaudid as patient was noticing strong recurrence of pain once effects of Dilaudid wore off, and he preferred to be off Dilaudid
- Continue neurochecks
Recent Paraspinal Tenderness Work-up at [facility] (Chronic Back Pain for 3 years)
Mild Intermittent Right Flank Pain for ~3 years (was evaluated at [facility]) -- UA was negative, CT Abd/Pelvis was unremarkable
4 mm left upper pole angiomyolipoma
-Based on outpatient records, MRI L-Spine performed in April 2024, neurosurgeon Dr. Hussein Skaggs saw patient for disc bulge and canal stenosis and recommended conservative management (PT, cyclobenzaprine, lidocaine patch, NSAIDs)
Vitamin D insufficiency on outside records
-Recheck vitamin D levels here
DVT Prophylaxis: Lovenox
Code Status: Full Code
Anticipated Discharge: > 48 hours
Subjective/Interval History
-
Date of Service: June 13, 2024
Patient was seen and examined. He reported continued pain episodes especially when the effects of Dilaudid wore off. He preferred to stop taking the Dilaudid.
Objective Data
-
Vital Signs:
Vital Signs
Temp Pulse Resp BP Pulse Ox
98 F 84 16 143/88 95
06/13/24 06:29 06/13/24 06:29 06/13/24 06:29 06/13/24 06:29 06/13/24 06:29
I&O
06/12/24 06/13/24 06/14/24
06:59 06:59 06:59
Intake Total 1919
Balance 1919
--- NOTE | 2024-06-13 13:19 | W.PN.NEURO.1 ---
Today's Communication / Plan
-
emg/ncs 4 limbs
f/u labs
mri tspine when able
Neuro Assessment/Plan
Assessment
SHERRY HADLEY is a 48 year old M who has presented to the hospital with gradual worsening of neuropathic pain that started in his R face with associated headache later moving into BUE, anterior chest wall, anterior abdomen and now radiating into
his LLE.
Differentials for the patient's presentation include:
1. transverse myelitis; MRI brain showed no abnormalities; no evidence of demyelinating disease
2. spinal stenosis; MRI Cspine showed some multifocal degenerative changes most pronounced at C5-6 and C6-7; no abnormalities within the cord; does not fully explain presentation
3. acute large or small fiber neuropathy, etiology unclear
4. complex regional pain syndrome
5. manifestation of anxiety
Plan
Recommendations:
1. reviewed MRI brain, Cspine results; T spine to be done tonight or tomorrow; EMG/NCS 4 limbs to be done later today by Dr. Merlos
2. check bloodwork for metabolic causes: HOA, ds-DNA, RA, ANCA, ESR, CRP, Vit E/B12, copper, ceruloplasmin, folate, MMA, homocysteine, HIV, RPR, Lyme, VZV, HTLV-1
3. if testing is negative, consider LP
4. continue duloxetine; limit opioids
5. continue neurochecks
Subjective/Objective
Subjective Data
Date of Service: June 13, 2024
no change in symptoms
Objective Data
Vital Signs
Temp Pulse Resp BP Pulse Ox
98 F 84 16 143/88 95
06/13/24 06:29 06/13/24 06:29 06/13/24 06:29 06/13/24 06:29 06/13/24 06:29
Lab Results
06/12/24 06:50
06/12/24 06:50
Sodium 138 mmol/L (135-145) 06/12/24 06:50
Potassium 3.9 mmol/L (3.5-5.1) 06/12/24 06:50
BUN 14 mg/dl (9-20) 06/12/24 06:50
Glucose 122 mg/dl (70-99) H 06/12/24 06:50
Calcium 8.9 mg/dl (8.4-10.2) 06/12/24 06:50
Vitamin B12 Cancelled 06/12/24 13:47
Ur Buprenorphine Cancelled 06/11/24 23:14
Ur Buprenorphine Negative (Negative) 06/11/24 23:14
Patient Allergies
No Known Allergies Allergy (Verified 06/11/24 18:21)
Physical Exam
-
The patient is awake, alert and oriented x 3. He is able to follow commands and answer questions appropriately. There is no aphasia or dysarthria. On cranial nerve assessment, pupils are 3 mm bilateral, round and reactive to light and accommodation.
Visual delarosa are full. Extraocular movements are intact. There is no facial asymmetry. Facial sensation symmetric today. Hearing is intact bilaterally to normal conversation volume. Tongue palate and uvula are midline. Sternocleidomastoid
strengths are full bilaterally. Motor strengths are 5/5 bilateral upper and lower extremities on medical research [place] scale. There is no drift or involuntary movement noted. Deep tendon reflexes are 2+ bilateral upper extremities, 3+ patellars
bilaterally; toes mute. No clear sensory level. There was no extinction noted on double simultaneous stimulation. Coordination is intact by finger to nose bilaterally.
[2024-06-13 15:53] VITALS: BP 119/82
[2024-06-13] MEDS: NEURONTIN 300 MG PO ×2 (17:09→21:22)
[2024-06-13 23:06] VITALS: BP 117/68
[2024-06-14] MEDS: ROXICODONE 10 MG PO ×2 (02:21→06:34)
--- NOTE | 2024-06-14 09:12 | W.PN.NEURO.1 ---
Today's Communication / Plan
-
Discontinue Oxycodone
Replace Gabapentin with Pregabalin 100 mg 3 times a day
Outpatient pain management consultation
Neuro Assessment/Plan
Assessment
SHERRY HADLEY is a 48 year old M who has presented to the hospital with gradual worsening of neuropathic pain that started in his R face with associated headache later moving into BUE, anterior chest wall, anterior abdomen and now radiating into
his LLE.
1. transverse myelitis; MRI brain showed no abnormalities; no evidence of demyelinating disease
2. spinal stenosis; MRI Cspine showed some multifocal degenerative changes most pronounced at C5-6 and C6-7; no abnormalities within the cord; does not fully explain presentation
reviewed MRI brain, Cspine results; T spine to be done tonight or tomorrow
Differentials for the patient's presentation include:
acute large or small fiber neuropathy, etiology unclear; complex regional pain syndrome; somatization disorder
Plan
Recommendations:
Discontinue Oxycodone
Replace Gabapentin with Pregabalin 100 mg 3 times a day
Outpatient pain management consultation
EMG/NCS 4 limbs to be done later today by Dr. Merlos
await blood work for metabolic causes: HAO, ds-DNA, RA, ANCA, ESR, CRP, Vit E/B12, copper, ceruloplasmin, folate, MMA, homocysteine, HIV, RPR, Lyme, VZV, HTLV-1
if testing is negative, consider LP as outpatient
continue duloxetine
Will follow pending results.
Subjective/Objective
Subjective Data
Date of Service: June 14, 2024
Starts 3.5 hours after last dose of Oxycodone (started by ED)
Improved, intensity max 1010, currently 4/10.
Objective Data
Vital Signs
Temp Pulse Resp BP Pulse Ox
36.9 C 84 18 117/68 96
06/13/24 23:06 06/13/24 23:06 06/13/24 23:06 06/13/24 23:06 06/13/24 23:06
Sodium 138 mmol/L (135-145) 06/12/24 06:50
Potassium 3.9 mmol/L (3.5-5.1) 06/12/24 06:50
BUN 14 mg/dl (9-20) 06/12/24 06:50
Glucose 122 mg/dl (70-99) H 06/12/24 06:50
Calcium 8.9 mg/dl (8.4-10.2) 06/12/24 06:50
Vitamin B12 Cancelled 06/12/24 13:47
Ur Buprenorphine Cancelled 06/11/24 23:14
Ur Buprenorphine Negative (Negative) 06/11/24 23:14
Patient Allergies
No Known Allergies Allergy (Verified 06/11/24 18:21)
Review of Systems
-
History Source: Patient
All other systems: Reviewed and negative
EENT: Negative Blurry Vision or Swallowing Difficulty
Respiratory: Negative Trouble Breathing
Cardiac: Chest Pain
Abdomen/GI: Negative Incontinence of Stool
Genitourinary: Negative Incontinence
Musculoskeletal: Negative Back Pain (left shoulder blade) or Neck Pain
Skin: Itching (bilateral chest)
Neuro: Negative Dizzy or Headache
Physical Exam
-
The patient is awake, alert and oriented x 3. He is able to follow commands and answer questions appropriately. There is no aphasia or dysarthria. On cranial nerve assessment, pupils are 3 mm bilateral, round and reactive to light and accommodation.
Visual delarosa are full. Extraocular movements are intact. There is no facial asymmetry. Facial sensation symmetric today. Hearing is intact bilaterally to normal conversation volume. Tongue palate and uvula are midline. Sternocleidomastoid
strengths are full bilaterally. Motor strengths are 5/5 bilateral upper and lower extremities on medical research [place] scale. There is no drift or involuntary movement noted. Deep tendon reflexes are 2+ bilateral upper extremities, 3+ patellars
bilaterally; toes mute. No clear sensory level. There was no extinction noted on double simultaneous stimulation. Coordination is intact by finger to nose bilaterally.
[2024-06-14 09:13] VITALS: BP 120/77
[2024-06-14] MEDS: LYRICA 100 MG PO ×3 (09:31→22:02)
[2024-06-14] MEDS: CYMBALTA DELAYED RELEASE 30 MG PO (09:31)
[2024-06-14] MEDS: NEURONTIN PO (09:34)
--- NOTE | 2024-06-14 09:34 | NS.EMG ---
Electromyogram (EMG) Study
EMG/NCS Summary
EMG/nerve conduction study was performed in the patient's hospital room. The examination was limited because of the patient's intolerance to nerve conduction testing. The study was performed on the more symptomatic regions of the patient's body.
Electrodiagnostic evaluation was limited to nerve conduction study of the right upper limb, needle EMG examination of the right upper limb, right cervical paraspinal musculature and needle EMG of the left lower limb.
Electrodiagnostic Impressions: Normal right upper extremity nerve conduction study. Normal needle EMG of the right upper limb, right cervical paraspinal musculature, and left lower limb.
Full dictated report and tabular data to follow.
[2024-06-14] MEDS: TORADOL 15 MG IV ×3 (11:28→23:57)
[2024-06-14 12:15] LABS: Hemoglobin 16.6 g/dL (13.0-18.0); Mean Corp Hgb Conc. 35.3 g/dL (33.0-37.0); Mean Corpuscular Hgb 30.9 pg (27.0-31.0); Mean Corpuscular Volume 87.5 fL (80.0-94.0); Mean Platelet Volume 11.6 fL (7.4-10.4); Platelet Count 222 10^3/uL (130-400); Red Blood Cell Count 5.37 10^6/uL (4.70-6.10); Red Cell Dist. Width 13.5 % (11.5-14.5); White Blood Cell Count 7.1 10^3/uL (4.8-10.8)
[2024-06-14 12:37] LABS: Blood Urea Nitrogen 17 mg/dl (9-20); Calcium 9.2 mg/dl (8.4-10.2); Carbon Dioxide 32 mmol/L (22-30); Chloride 96 mmol/L (98-107); Estimated Creatinine Clearance 84 ml/min; Glucose 91 mg/dl (70-99); Magnesium 2.5 mg/dl (1.6-2.3); Potassium 4.7 mmol/L (3.5-5.1); Sodium 138 mmol/L (135-145); eGFR > 60.00
[2024-06-14 12:53] LABS: Vitamin D, 25-OH*** 21.1 ng/mL (30-80)
--- NOTE | 2024-06-14 12:59 | W.PN.HOSP.TC ---
Today's Communication/Plan
-
Appreciate neurology
Consulted ID and neurosurgery given MRI findings, appreciate their evaluation
Stop narcotic pain meds as discussed with neurology
Supplement Vitamin D due to 25 OH vitamin D level of 21.1
Assessment / Plan
Assessment / Plan
Physical Exam
General: Not in acute distress.
HEENT: Moist mucous membranes.
Respiratory: CTAB.
Cardiac: S1/S2 and Regular Rhythm
GI: Soft, Non Tender, Non Distended and Normal Bowel Sounds
Musculoskeletal: No Cyanosis and No Edema
Skin: Other (Scattered lipomas over primarily the extremities. No vesicular rash / pustular lesions.)
Neuro: AO x 3. Cranial Nerves 2 through 12 intact. Strength and sensation grossly intact bilaterally.

MRI Brain (as per radiologist's report)
'IMPRESSION:
No acute intracranial abnormality noted.
Polypoid mucosal thickening of the right maxillary and right sphenoid sinuses with near complete occlusion of the right sphenoid sinus.'
MRI Cervical Spine (as per radiologist's report)
'IMPRESSION:
There is multifocal degenerative changes most pronounced at C5-C6 and C6-C7.
At C5-C6 there is asymmetric to the right disc bulge, uncovertebral hypertrophy and minimal facet arthropathy with resultant mild canal stenosis, slight indentation of the anterolateral right spinal cord and severe right-sided neuroforaminal
narrowing.
At C6/C7 there is asymmetric to right disc bulge, uncovertebral hypertrophy and minimal facet arthropathy with resultant mild canal stenosis, no significant right-sided neuroforaminal and moderate/severe left-sided neuroforaminal narrowing.
There is no abnormal signal or enhancement within the cervical spinal cord.'
MRI Thoracic Spine (as per radiologist's report)
IMPRESSION:
No intrinsic thoracic cord signal alteration. No abnormal enhancement. Small left paracentral protrusion at T1-2. No significant central canal or foraminal stenosis.
Right paraspinal soft tissue edema/hyperemia from T8 through T11, most pronounced at T10-11. Nonspecific. On CT, there is a fragmented bridging osteophyte at T10-11. The associated paraspinal edema could reflect an occult osteophyte fracture. This
could be related to paraspinal soft tissue strain, or nonspecific inflammatory changes. Mild/early infection cannot be entirely excluded in the proper clinical setting. No focal collection or abscess.
Electromyogram (EMG) Study Results (as per Dr. Rivas Merlos)
'EMG/nerve conduction study was performed in the patient's hospital room. The examination was limited because of the patient's intolerance to nerve conduction testing. The study was performed on the more symptomatic regions of the patient's body.
Electrodiagnostic evaluation was limited to nerve conduction study of the right upper limb, needle EMG examination of the right upper limb, right cervical paraspinal musculature and needle EMG of the left lower limb.
Electrodiagnostic Impressions: Normal right upper extremity nerve conduction study. Normal needle EMG of the right upper limb, right cervical paraspinal musculature, and left lower limb.
Full dictated report and tabular data to follow.'

Assessment/Plan
Patient is a 48y M with PMH significant for familial lipomatosis who presents to ED complaining of about 10 days of progressive pain / dysesthesia. He was prescribed Valtrex, gabapentin, Percocet and prednisone without significant, lasting relief.
Dysesthesia
Headache
Supersensitivity Sensation in bilateral arms, chest and head
Hot Flashes Sensation in the Bilateral Lower Extremities
Neuropathic Pain Suspected to be from demyelinating disease, transverse myelitis, spinal stenosis, neuropathic pain due to viral infection, complex regional pain syndrome, and possibly also manifestation of anxiety
- Patient noted on admission that pain is controlled only with Percocet and only temporarily.
- Continue supportive care. Pain control as needed - but patient aware that penitentiary opioids is not a solution.
- Trial of duloxetine for symptoms improvement -- started at 30 mg once daily, can be increased outpatient in 1 to 2 weeks if being tolerated and no side effects.
- Neurology evaluation
- MRI performed, results are above
- Consulted neurosurgeon given findings in MRI (degenerative changes, disc bulges and canal stenosis, paraspinal edema in the T-Spine area)
- Follow-up results of HAO, ds-DNA, RA, ANCA, ESR (normal), CRP (elevated at 14.3), Vit E/B12 (B12 levels normal), copper, ceruloplasmin, folate (normal), MMA, homocysteine, HIV, RPR, Lyme, VZV, HTLV-1
- Consulted infectious diseases given paraspinal edema as well as to see whether Lyme or another infectious cause could be a possibility
- EMG/NCS 4 limbs -- this was limited study due to discomfort patient experienced but the results were unremarkable on the areas that were performed
- Will consider transfer to [facility]
- Narcotic pain medications should be limited as much as possible -- stopped Dilaudid as patient was noticing strong recurrence of pain once effects of Dilaudid wore off, and he preferred to be off Dilaudid, oxycodone stopped by neurology
- Continue neurochecks
Recent Paraspinal Tenderness Work-up at [facility] (Chronic Back Pain for 3 years)
Mild Intermittent Right Flank Pain for ~3 years (was evaluated at [facility]) -- UA was negative, CT Abd/Pelvis was unremarkable
4 mm left upper pole angiomyolipoma
-Based on outpatient records, MRI L-Spine performed in April 2024, neurosurgeon Dr. Hussein Skaggs saw patient for disc bulge and canal stenosis and recommended conservative management (PT, cyclobenzaprine, lidocaine patch, NSAIDs)
Vitamin D insufficiency
-25 OH Vit D is 21.1 here
-Start supplementation
DVT Prophylaxis: Lovenox
Code Status: Full Code
Anticipated Discharge: > 48 hours
Subjective/Interval History
-
Date of Service: June 14, 2024
Patient was seen and examined. He reported feeling a little better today.
Objective Data
-
Labs:
Laboratory Results
06/14/24
11:48
WBC 7.1
Hgb 16.6
Hct 47.0
Plt Count 222
Sodium 138
Potassium 4.7
Chloride 96 L
Carbon Dioxide 32 H
BUN 17
Creatinine 1.1
Glucose 91
Calcium 9.2
Vital Signs:
Vital Signs
Temp Pulse Resp BP Pulse Ox
98.5 F 79 18 120/77 96
06/14/24 09:13 06/14/24 09:13 06/14/24 09:13 06/14/24 09:13 06/14/24 09:13
I&O
06/13/24 06/14/24 06/15/24
06:59 06:59 06:59
Intake Total 1919 480 / 480
Balance 1919 480 / 480
[2024-06-14] MEDS: VITAMIN D3 (cholecalciferol) 25 MCG PO (13:30)
--- NOTE | 2024-06-14 15:15 | CON.ID ---
Consultation
-
Date/Time Consultation Requested: 06/14/2024 1151
Date/Time Consultation Performed: 06/14/2024 1500
Requesting Provider: Dr. Geiger
Performing Provider: Dr. De La Cruz
Reason for Consultation: Skin 'burning'
Chief Complaint / Past History
History of Present Illness
Jose Alcala is a 48-year-old man being evaluated in infectious disease consultation regarding altered skin sensorium. History is obtained from chart review, along with patient interview.
The patient reports that he was in his usual state of health until 05/2824 when he recalls developing a headache on the right side of his head in the afternoon. Around that time he recalls he had a dentist appointment. He continued to have a
headache for the next 2 days, and then developed the sensation that something was 'dripping into his right eye' with some feeling of discomfort around the right lateral eyelid and eyebrow area. He ultimately was evaluated at an urgent care and he
was diagnosed with 'possible shingles' and was prescribed a course of Valtrex. He subsequently was seen by his PCP after his arm became intermittently numb and he developed what he described as very 'sensitive skin' with a feeling of altered
sensation. His PCP sent him to the emergency room, and he presented on 06/05. CT scan of the brain revealed no acute abnormalities. Blood work was noted to be normal, and the patient was discharged with a prescription for gabapentin, Percocet and
prednisone. Ultimately, symptomatology persisted and he presented back to the emergency room on 06/11 after the sensation of body pain increased and the patient became more fatigued.
The patient denies any fevers during this period of time, but notes occasional chills. He denies any difficulty swallowing.
He works as an x ray consultant in immigration law. There have been no sick contacts.
He describes travel to the [place] and [place] where he attended cricket games. He did not eat any fish while he was there. Since return, he reports that he may have eaten some tilapia or salmon, but has not eaten any [place].
He is with 4 children. The children are healthy.
Past History
Additional Past Medical History:
Asthma
Familial lipomatosis
Allergy History:
No Known Allergies Allergy (Verified 06/11/24 18:21)
Medications Reviewed: Yes
Current Antibiotics:
None
Social History
Tobacco: Non-Smoker
Alcohol: None
Drug: None
Personal:
Living: With Family
Employment: Employed
Family History
Family History: Not Pertinent
Review of Systems
Vital Signs
Temp Pulse Resp BP Pulse Ox
98.5 F 79 18 120/77 96
06/14/24 09:13 06/14/24 09:13 06/14/24 09:13 06/14/24 09:13 06/14/24 09:13
Physical Exam
Physical Exam
Constitutional: No Acute Distress, Well Developed, Comfortable and Non-toxic
Head: Normocephalic
Eyes: Pupils Equal, Pupils Round, No Conjunctival Hemorrhage and Sclera Anicteric
Oral: No Thrush and No Ulcers
Cardiovascular: Regular Rate and S1/S2; Negative S3/S4 or Murmur
Pulmonary: Clear and Non Labored; Negative Wheezes, Rales or Rhonchi
Gastrointestinal: Soft, Non Tender, Non Distended, Normal Bowel Sounds and No Rebound
Extremities: Negative Edema, Cyanosis or Erythema
Skin: Warm, Dry and Other (Lipomas noted.); Negative Rash or Jaundice
Neurological: Awake and Alert
Psychological: Calm
Lab / Diagnostic Study Results
06/14/24 11:48
06/14/24 11:48
Abs Immat Gran (auto) 0.1 10^3/uL (0-0.05) H 06/11/24 18:28
Absolute Neuts (auto) 7.5 10^3/uL (1.4-6.5) H 06/11/24 18:28
Absolute Lymphs (auto) 3.4 10^3/uL (1.2-3.4) 06/11/24 18:28
Absolute Monos (auto) 0.7 10^3/uL (0.1-0.6) H 06/11/24 18:28
Absolute Basos (auto) 0.1 10^3/uL (0-0.2) 06/11/24 18:28
Immature Gran % 0.7 % (0-0.5) H 06/11/24 18:28
Neutrophils % 62.1 % (42.2-75.2) 06/11/24 18:
Lymphocytes % 28.6 % (20.5-51.1) 06/11/24 18:
Monocytes % 5.9 % (1.7-9.3) 06/11/24 18:
Eosinophils % 1.9 % (0-6) 06/11/24 18:
Basophils % 0.8 % (0-2) 06/11/24 18:
ESR 7 mm/hour (0-20) 06/12/24 14:09
C-Reactive Protein 14.30 mg/L (0.0-10.00) H 06/12/24 06:50
Microbiology Results
Imaging:
06/13/2024 MRI spine: Right paraspinal soft tissue edema/hyperemia from T8 through T11, most pronounced at T10-11. Nonspecific. On CT, there is a fragmented bridging osteophyte at T10-11. The associated paraspinal edema could reflect an occult
osteophyte fracture. This could be related to paraspinal soft tissue strain, or nonspecific inflammatory changes. Mild/early infection cannot be entirely excluded in the proper clinical setting. No focal collection or abscess.
06/12/2024 MRI brain: No acute intracranial abnormality noted.
Assessment / Plan
Skin with altered sensation
- ?Peripheral neuropathy ?central process
- improved at present
Mild transaminitis
Mild CRP elevation
Hx asthma
Familial Lipomatosis
Recommendations:
At present, no evidence of an infectious process. Findings on MRI in the thoracic spine are not consistent with an infectious process, and patient has minimal symptomatology in the area.
Overall, patient reports that his skin sensations are improved.
At the present time I do not think there is any need for a lumbar puncture, but if symptomatology worsens it could be considered.
[2024-06-14 15:23] LABS: Rheumatoid Agglutinin Less Than 10 IU (<10 IU)
[2024-06-14 16:12] VITALS: BP 137/87
--- NOTE | 2024-06-14 16:27 | CON.NS ---
Consultation
-
Date/Time Consultation Performed: 06/14/2024: 16:30
Performing Provider: Randa
Chief Complaint
History of Present Illness
This is a neurosurgical consultation on a 48-year-old gentleman, with a past medical history significant for familial lipomatosis, who presents on 06/12/2024 with symptoms of right-sided headache, with radiation to the right eye, right cheek that
occurred approximately 2 weeks prior, without any significant improvement of his symptoms with NSAIDs. He then developed pain in the left posterior shoulder/scapular area. He then reported the pain radiated around to his left chest. He went to
the urgent care center, and was treated for presumed shingles. Since then, he has had significant pains in bilateral arms, left greater than right, the abdomen, and the legs. He was seen in the emergency room on 06/05/2024, and was discharged on
gabapentin, Percocet, and prednisone.
He was evaluated by neurology, and it was felt that his differential diagnosis was possible demyelinating disease/transverse myelitis, versus other etiologies such as spinal stenosis, or neuropathic pain due to viral infection. Patient was
evaluated by neurology, and it was felt that his symptomatology could be secondary to transverse myelitis. His MRI of the brain demonstrated no abnormalities, and there was no evidence of demyelinating disease on his cervical, and thoracic MRI
scans. He had a cervical MRI scan that did demonstrate some degenerative changes at C5-C6, C6-C7. It was felt that differential diagnosis could be acute large or small fiber neuropathy, complex regional pain syndrome, somatizations disorder.
He also had a thoracic spine MRI which is available for review. There was questionable evidence of thoracic spine paraspinal edema. There is also, per chart review, outpatient records that revealed that an MRI of the lumbar spine performed in April
2023 was reviewed by neurosurgeon and recommended conservative management. He has been seen by infectious disease as well, and it is determined that there is no obvious evidence of an infectious process. Patient also had an EMG/NCV, which was
negative for acute radiculopathy.
Patient seen and examined. He reports that his facial symptoms have somewhat resolved. He does admit that they have improved since he has been on pain medications. The pain medications have been stopped, and he does admit that the symptoms are
somewhat improved compared to his admission symptomatology. He has a burning dysesthetic pain that he reports is over his anterior chest and torso and intermittently down both legs. He denies any weakness in his upper or lower extremities.
Review of Systems
-
A 10 point review of systems including constitutional, ENT, cardiovascular, respiratory, GI, , endocrinologic, hematologic, neurologic, musculoskeletal, was performed, and was negative, except for stated in HPI.
Medication and Allergies
Home Medications
Home Medications
�Medication �Instructions �Recorded
prednisone 50 mg tablet 50 mg PO DAILY #5 tabs 06/05/24
gabapentin 300 mg capsule 600 mg PO TID 06/12/24
oxycodone-acetaminophen 5 mg-325 1 - 2 tab PO Q6H 06/12/24
mg tablet
Allergies
Allergies
Allergy/AdvReac Type Severity Reaction Status Date / Time
No Known Allergies Allergy Verified 06/11/24 18:21
Physical Exam
-
Exam:
Awake, alert, no apparent distress
Cranial nerves II through XII are grossly intact
Motor: 5/5 strength bilaterally in upper extremities and lower extremities.
No evidence of pronator drift
Reflexes are 2+ and symmetric bilaterally in upper and lower extremities.
Gely sign, Babinski absent
Patient has multiple subcutaneous nodules consistent with his familial lipomatosis.
Head is normocephalic, atraumatic
Neck is supple
Breathing is nonlabored
Cardiac: Regular rate and rhythm
Abdomen is nondistended
Extremities are warm
MRI of the cervical spine performed on 06/12/2024 was reviewed.There is multilevel evidence of disc bulges that are seen at C4-5, C5-C6 on the right, and C6-C7. These all appear to be shallow. There is no obvious evidence of cord compression which
is seen. There is no evidence of cord signal change which is noted. STIR signal sequences do not demonstrate any obvious evidence of acute ligamentous or soft tissue injury.
MRI of the thoracic spine was reviewed. There is no obvious evidence of thoracic spinal cord, neural compression. There is no evidence of signal change within the cord. Report of paraspinal T8-T11 soft tissue edema is noted. On STIR sequences,
this is not particularly obvious or evident.
Assessment / Plan
-
This is a 48-year-old gentleman who presents with multifocal pain. Neurosurgery asked to comment on cervical spine MRI scan demonstrating multilevel disc bulges.
At present time, imaging does not explain the patient's symptomatology. Additionally, there is no obvious evidence of acute neural/cord compression. Given this, continue ongoing workup and management per medicine.
No neurosurgical intervention indicated at the present time.
--- NOTE | 2024-06-14 18:28 | CM ---
ID involved .
Continues pain meds as needed.
Offered VN at dc He declined need,
PLAN Home no needs
[2024-06-14] MEDS: BENADRYL ELIXIR 12.5 MG PO (18:46)
[2024-06-14 21:26] LABS: Ceruloplasmin 22 mg/dL (15-30)
[2024-06-14 23:05] LABS: Copper, Serum 101.3 ug/dL (70.0-140.0)
[2024-06-14 23:15] LABS: ANA, IgG Reflex to HEp-2 None Detected (None Detected)
[2024-06-14 23:36] LABS: Myeloperoxidase Antibody 0 AU/mL (0-19); Serine Protease-3, IgG 0 AU/mL (0-19)
[2024-06-14 23:37] VITALS: BP 165/102
[2024-06-15 00:31] LABS: ds-DNA Ab, IgG Reflex To Titer 2 IU (0-24)
[2024-06-15 00:40] LABS: HTLV I/II Antibodies Negative (Negative)
[2024-06-15 01:00] VITALS: BP 156/81
[2024-06-15] MEDS: TORADOL 15 MG IV ×3 (06:44→20:27)
[2024-06-15 07:53] VITALS: BP 159/106
[2024-06-15] MEDS: CYMBALTA DELAYED RELEASE 30 MG PO (08:13)
[2024-06-15] MEDS: VITAMIN D3 (cholecalciferol) 25 MCG PO (08:13)
[2024-06-15] MEDS: LYRICA 100 MG PO ×3 (08:13→22:13)
[2024-06-15 10:25] VITALS: BP 143/101
[2024-06-15 11:07] LABS: Alpha-Tocopherol 11.2 mg/L (5.5-18.0); Gamma-Tocopherol 1.1 mg/L (0.0-6.0)
[2024-06-15 11:34] LABS: Syphilis/T. pallidum Ab Reflex Negative (Negative)
--- NOTE | 2024-06-15 12:02 | PTCARENOTE ---
Dr Geiger aware of blood pressure readings today- instructed to continue to monitor. plan od care on going.
[2024-06-15 13:11] LABS: HIV Combo Negative (Negative)
[2024-06-15 16:25] VITALS: BP 144/82
--- NOTE | 2024-06-15 17:25 | W.PN.HOSP.TC ---
Today's Communication/Plan
-
Pain overall better but still at times intense
Assessment / Plan
Assessment / Plan
Physical Exam
General: Not in acute distress.
HEENT: Moist mucous membranes.
Respiratory: CTAB.
Cardiac: S1/S2 and Regular Rhythm
GI: Soft, Non Tender, Non Distended and Normal Bowel Sounds
Musculoskeletal: No Cyanosis and No Edema
Skin: Other (Scattered lipomas over primarily the extremities. No vesicular rash / pustular lesions.)
Neuro: AAO x 3. Cranial Nerves 2 through 12 intact. Strength and sensation grossly intact bilaterally.

MRI Brain (as per radiologist's report)
'IMPRESSION:
No acute intracranial abnormality noted.
Polypoid mucosal thickening of the right maxillary and right sphenoid sinuses with near complete occlusion of the right sphenoid sinus.'
MRI Cervical Spine (as per radiologist's report)
'IMPRESSION:
There is multifocal degenerative changes most pronounced at C5-C6 and C6-C7.
At C5-C6 there is asymmetric to the right disc bulge, uncovertebral hypertrophy and minimal facet arthropathy with resultant mild canal stenosis, slight indentation of the anterolateral right spinal cord and severe right-sided neuroforaminal
narrowing.
At C6/C7 there is asymmetric to right disc bulge, uncovertebral hypertrophy and minimal facet arthropathy with resultant mild canal stenosis, no significant right-sided neuroforaminal and moderate/severe left-sided neuroforaminal narrowing.
There is no abnormal signal or enhancement within the cervical spinal cord.'
MRI Thoracic Spine (as per radiologist's report)
IMPRESSION:
No intrinsic thoracic cord signal alteration. No abnormal enhancement. Small left paracentral protrusion at T1-2. No significant central canal or foraminal stenosis.
Right paraspinal soft tissue edema/hyperemia from T8 through T11, most pronounced at T10-11. Nonspecific. On CT, there is a fragmented bridging osteophyte at T10-11. The associated paraspinal edema could reflect an occult osteophyte fracture. This
could be related to paraspinal soft tissue strain, or nonspecific inflammatory changes. Mild/early infection cannot be entirely excluded in the proper clinical setting. No focal collection or abscess.
Electromyogram (EMG) Study Results (as per Dr. Rivas Merlos)
'EMG/nerve conduction study was performed in the patient's hospital room. The examination was limited because of the patient's intolerance to nerve conduction testing. The study was performed on the more symptomatic regions of the patient's body.
Electrodiagnostic evaluation was limited to nerve conduction study of the right upper limb, needle EMG examination of the right upper limb, right cervical paraspinal musculature and needle EMG of the left lower limb.
Electrodiagnostic Impressions: Normal right upper extremity nerve conduction study. Normal needle EMG of the right upper limb, right cervical paraspinal musculature, and left lower limb.
Full dictated report and tabular data to follow.'

Assessment/Plan
Patient is a 48y M with PMH significant for familial lipomatosis who presents to ED complaining of about 10 days of progressive pain / dysesthesia. He was prescribed Valtrex, gabapentin, Percocet and prednisone without significant, lasting relief.
Dysesthesia
Headache
Supersensitivity Sensation in bilateral arms, chest and head
Hot Flashes Sensation in the Bilateral Lower Extremities
Neuropathic Pain Suspected to be from demyelinating disease, transverse myelitis, spinal stenosis, neuropathic pain due to viral infection, complex regional pain syndrome, and possibly also manifestation of anxiety
- Patient noted on admission that pain is controlled only with Percocet and only temporarily.
- Continue supportive care. Pain control as needed - but patient aware that senior care opioids is not a solution.
- Trial of duloxetine for symptoms improvement -- started at 30 mg once daily, can be increased outpatient in 1 to 2 weeks if being tolerated and no side effects.
- Neurology evaluation
- MRI performed, results are above
- Consulted neurosurgeon given findings in MRI (degenerative changes, disc bulges and canal stenosis, paraspinal edema in the T-Spine area): findings do not explain symptoms,
no surgical procedures indicated at this time
- Following-up results of HAO, ds-DNA, RA, ANCA, ESR (normal), CRP (elevated at 14.3), Vit E/B12 (B12 levels normal), copper, ceruloplasmin, folate (normal), MMA, homocysteine, HIV, RPR, VZV, HTLV-1 (negative)
- Consulted infectious diseases given paraspinal edema as well as to see whether Lyme or another infectious cause could be a possibility
- EMG/NCS 4 limbs -- this was limited study due to discomfort patient experienced but the results were unremarkable on the areas that were performed
- Will consider transfer to [facility]
- Minimize/avoid narcotic pain medications
- Continue neurochecks
Recent Paraspinal Tenderness Work-up at [facility] (Chronic Back Pain for 3 years)
Mild Intermittent Right Flank Pain for ~3 years (was evaluated at [facility]) -- UA was negative, CT Abd/Pelvis was unremarkable
4 mm left upper pole angiomyolipoma
-Based on outpatient records, MRI L-Spine performed in April 2024, neurosurgeon Dr. Hussein Skaggs saw patient for disc bulge and canal stenosis and recommended conservative management (PT, cyclobenzaprine, lidocaine patch, NSAIDs)
Vitamin D insufficiency
-25 OH Vit D is 21.1 here
-Start supplementation
DVT Prophylaxis: Lovenox
Code Status: Full Code
At the request of the patient, I spoke on 06/15/[address] uncle [address]. Chow and he is in agreement with discharging the patient tomorrow.
Anticipated Discharge: Within 24 hours
Subjective/Interval History
-
Date of Service: June 15, 2024
Patient was seen and examined. He reported intense pain overnight, but this morning the pain has improved. He reported that overall, his pain has improved.
Objective Data
-
Vital Signs:
Vital Signs
Temp Pulse Resp BP Pulse Ox
98.1 F 79 18 144/82 98
06/15/24 16:25 06/15/24 16:25 06/15/24 16:25 06/15/24 16:25 06/15/24 16:25
I&O
06/14/24 06/15/24 06/16/24
06:59 06:59 06:59
Intake Total 480 / 480 2500 / 2500
Balance 480 / 480 2500 / 2500
--- NOTE | 2024-06-15 18:09 | CM ---
ID involved .
Spoke with pt he said pain continues . He said tests are negative.
Continues pain meds as needed.
Offered VN at [place] He declined need,
PLAN Home no needs
[2024-06-15 23:00] VITALS: BP 167/109
[2024-06-16 00:55] VITALS: BP 149/99
[2024-06-16] MEDS: TORADOL 15 MG IV (04:17)
[2024-06-16 07:00] VITALS: BP 154/102
[2024-06-16] MEDS: LYRICA 100 MG PO (09:03)
[2024-06-16] MEDS: CYMBALTA DELAYED RELEASE 30 MG PO (09:04)
[2024-06-16] MEDS: VITAMIN D3 (cholecalciferol) 25 MCG PO (09:04)
--- NOTE | 2024-06-16 12:21 | W.PN.HOSP.TC ---
Today's Communication/Plan
-
Discharge today
Assessment / Plan
Assessment / Plan
Physical Exam
General: Not in acute distress.
HEENT: Moist mucous membranes.
Respiratory: CTAB.
Cardiac: S1/S2 and Regular Rhythm
GI: Soft, Non Tender, Non Distended and Normal Bowel Sounds
Musculoskeletal: No Cyanosis and No Edema
Skin: Warm. Dry.
Neuro: AAO x 3. Cranial Nerves 2 through 12 intact. Strength and sensation grossly intact bilaterally. Ambulating fine.

MRI Brain (as per radiologist's report)
'IMPRESSION:
No acute intracranial abnormality noted.
Polypoid mucosal thickening of the right maxillary and right sphenoid sinuses with near complete occlusion of the right sphenoid sinus.'
MRI Cervical Spine (as per radiologist's report)
'IMPRESSION:
There is multifocal degenerative changes most pronounced at C5-C6 and C6-C7.
At C5-C6 there is asymmetric to the right disc bulge, uncovertebral hypertrophy and minimal facet arthropathy with resultant mild canal stenosis, slight indentation of the anterolateral right spinal cord and severe right-sided neuroforaminal
narrowing.
At C6/C7 there is asymmetric to right disc bulge, uncovertebral hypertrophy and minimal facet arthropathy with resultant mild canal stenosis, no significant right-sided neuroforaminal and moderate/severe left-sided neuroforaminal narrowing.
There is no abnormal signal or enhancement within the cervical spinal cord.'
MRI Thoracic Spine (as per radiologist's report)
IMPRESSION:
No intrinsic thoracic cord signal alteration. No abnormal enhancement. Small left paracentral protrusion at T1-2. No significant central canal or foraminal stenosis.
Right paraspinal soft tissue edema/hyperemia from T8 through T11, most pronounced at T10-11. Nonspecific. On CT, there is a fragmented bridging osteophyte at T10-11. The associated paraspinal edema could reflect an occult osteophyte fracture. This
could be related to paraspinal soft tissue strain, or nonspecific inflammatory changes. Mild/early infection cannot be entirely excluded in the proper clinical setting. No focal collection or abscess.
Electromyogram (EMG) Study Results (as per Dr. Rivas Merlos)
'EMG/nerve conduction study was performed in the patient's hospital room. The examination was limited because of the patient's intolerance to nerve conduction testing. The study was performed on the more symptomatic regions of the patient's body.
Electrodiagnostic evaluation was limited to nerve conduction study of the right upper limb, needle EMG examination of the right upper limb, right cervical paraspinal musculature and needle EMG of the left lower limb.
Electrodiagnostic Impressions: Normal right upper extremity nerve conduction study. Normal needle EMG of the right upper limb, right cervical paraspinal musculature, and left lower limb.
Full dictated report and tabular data to follow.'

Assessment/Plan
Patient is a 48y M with PMH significant for familial lipomatosis who presents to ED complaining of about 10 days of progressive pain / dysesthesia. He was prescribed Valtrex, gabapentin, Percocet and prednisone without significant, lasting relief.
Dysesthesia: possibly acute large or small fiber neuropathy of unclear etiology; complex regional pain syndrome; somatization disorder
Headache
Supersensitivity Sensation in bilateral arms, chest and head
Hot Flashes Sensation in the Bilateral Lower Extremities
Neuropathic Pain Suspected to be from demyelinating disease, transverse myelitis, spinal stenosis, neuropathic pain due to viral infection, complex regional pain syndrome, and possibly also manifestation of anxiety
- Patient noted on admission that pain is controlled only with Percocet and only temporarily.
- Continue supportive care. Pain control as needed - but patient aware that fpc opioids is not a solution.
- Trial of duloxetine for symptoms improvement -- started at 30 mg once daily, can be increased outpatient in 1 to 2 weeks if being tolerated and no side effects.
- Neurology evaluation appreciated
- MRI performed, results are above
- Consulted neurosurgeon given findings in MRI (degenerative changes, disc bulges and canal stenosis, paraspinal edema in the T-Spine area): findings do not explain symptoms,
no surgical procedures indicated at this time
- Following-up results of HAO IgG screen (none detected), Anti ds-DNA (negative), RF (less than 10), PR3 Ab (negative), Myeloperoxidase Ab (negative), ESR (normal), CRP (elevated at 14.3), Vit E/B12 (B12 levels normal), copper (within normal
limits),
ceruloplasmin (22 -- within reference range), folate (normal), MMA (will need to follow-up), HIV (negative), Syphilis Screen (negative), HTLV-1 (negative)
- Consulted infectious diseases given paraspinal edema as well as to see whether Lyme or another infectious cause could be a possibility
- EMG/NCS 4 limbs -- this was limited study due to discomfort patient experienced but the results were unremarkable on the areas that were performed
- Minimize/avoid narcotic pain medications
- Continue neuro-checks
Recent Paraspinal Tenderness Work-up at [facility] (Chronic Back Pain for 3 years)
Mild Intermittent Right Flank Pain for ~3 years (was evaluated at [facility]) -- UA was negative, CT Abd/Pelvis was unremarkable
4 mm left upper pole angiomyolipoma
-Based on outpatient records, MRI L-Spine performed in April 2024, neurosurgeon Dr. Hussein Skaggs saw patient for disc bulge and canal stenosis and recommended conservative management (PT, cyclobenzaprine, lidocaine patch, NSAIDs)
Vitamin D insufficiency
-25 OH Vit D is 21.1 here
-Start supplementation
DVT Prophylaxis: Lovenox
Code Status: Full Code
More than 30 minutes spent in discharge including
Final examination of the patient
Summarizing hospital stay
Instructions for continuing care to all relevant caregivers
Preparation of discharge records, prescriptions, and referral forms
Total time spent (in minutes): 42
Anticipated Discharge: Today
Subjective/Interval History
-
Date of Service: June 16, 2024
Patient was seen and examined. He still required some Toradol over the past 24 hours due to pain, but he reported that overall his pain is better.
Objective Data
-
Vital Signs:
Vital Signs
Temp Pulse Resp BP Pulse Ox
99.1 F 92 18 154/102 97
06/16/24 07:00 06/16/24 07:00 06/16/24 07:00 06/16/24 07:00 06/16/24 07:00
I&O
06/15/24 06/16/24 06/17/24
06:59 06:59 06:59
Intake Total 2500 / 2500 1440 / 1440
Balance 2500 / 2500 1440 / 1440
--- NOTE | 2024-06-16 13:22 | W.DCSUMMARY ---
Discharge Summary
Discharge Data
Date of Admission: 06/14/24
Date of Discharge: 06/16/24
Total time spent discharging patient (in min): 42
-
Pending Results: Yes
Additional Pending Results:
Some of the lab results ordered in the hospital
Hospital Course
48 y/o male with past medical history significant for familial lipomatosis who presented to the emergency department with pain and increased skin sensitivity in his trunk, arms and head, as well as hot flashes in his lower extremities, which all
started a couple of weeks prior. He had been started on treatment outpatient with Valtrex for presumed Shingles, as well as Oxycodone, Prednisone and Gabapentin. However his pain had persisted. Neurology was consulted, and MRI imaging of patient's
brain, cervical spine and thoracic spine were performed without a finding that would explaining patient's symptoms. Many lab tests were ordered and were negative or unremarkable. Infectious Disease was consulted and mentioned an infectious cause was
unlikely. It was advised that patient take Lyrica instead of Gabapentin, he continue Duloxetine and stop taking narcotics including Oxycodone. Nerve conduction study was performed, and it was limited due to patient's intolerance/discomfort from the
testing, but it was unremarkable in the areas the testing was performed. Patient could be considered for a lumbar puncture outpatient. Neurosurgery was also consulted and mentioned that from their standpoint, imaging did not explain the patient's
symptomatology, and that additionally, there was no obvious evidence of acute neural/cord compression. Patient's improved somewhat, and he was stable for discharge with outpatient follow-up with several specialties, including pain management.
Discharge Plan
-
Patient Disposition: Home (Routine Discharge)
Discharge Diagnosis/Procedures: Neuropathic Pain possibly acute large or small fiber neuropathy of unclear etiology; complex regional pain syndrome; somatization disorder
Headache
Supersensitivity Sensation in bilateral arms, chest and head
Hot Flashes Sensation in the Bilateral Lower Extremities
Recent Paraspinal Tenderness Work-up at [facility] (Chronic Back Pain for 3 years)
Mild Intermittent Right Flank Pain for ~3 years (was evaluated at [facility]) -- UA was negative, CT Abd/Pelvis was unremarkable
4 mm left upper pole angiomyolipoma
Vitamin D insufficiency
MRI Brain (as per radiologist's report)
'IMPRESSION:
No acute intracranial abnormality noted.
Polypoid mucosal thickening of the right maxillary and right sphenoid sinuses with near complete occlusion of the right sphenoid sinus.'
MRI Cervical Spine (as per radiologist's report)
'IMPRESSION:
There is multifocal degenerative changes most pronounced at C5-C6 and C6-C7.
At C5-C6 there is asymmetric to the right disc bulge, uncovertebral hypertrophy and minimal facet arthropathy with resultant mild canal stenosis, slight indentation of the anterolateral right spinal cord and severe right-sided neuroforaminal
narrowing.
At C6/C7 there is asymmetric to right disc bulge, uncovertebral hypertrophy and minimal facet arthropathy with resultant mild canal stenosis, no significant right-sided neuroforaminal and moderate/severe left-sided neuroforaminal narrowing.
There is no abnormal signal or enhancement within the cervical spinal cord.'
MRI Thoracic Spine (as per radiologist's report)
'IMPRESSION:
No intrinsic thoracic cord signal alteration. No abnormal enhancement. Small left paracentral protrusion at T1-2. No significant central canal or foraminal stenosis.
Right paraspinal soft tissue edema/hyperemia from T8 through T11, most pronounced at T10-11. Nonspecific. On CT, there is a fragmented bridging osteophyte at T10-11. The associated paraspinal edema could reflect an occult osteophyte fracture. This
could be related to paraspinal soft tissue strain, or nonspecific inflammatory changes. Mild/early infection cannot be entirely excluded in the proper clinical setting. No focal collection or abscess.'
Electromyogram (EMG) Study Results (as per Dr. Rivas Merlos)
'EMG/nerve conduction study was performed in the patient's hospital room. The examination was limited because of the patient's intolerance to nerve conduction testing. The study was performed on the more symptomatic regions of the patient's body.
Electrodiagnostic evaluation was limited to nerve conduction study of the right upper limb, needle EMG examination of the right upper limb, right cervical paraspinal musculature and needle EMG of the left lower limb.
Electrodiagnostic Impressions: Normal right upper extremity nerve conduction study. Normal needle EMG of the right upper limb, right cervical paraspinal musculature, and left lower limb.
Full dictated report and tabular data to follow.'
Condition: Fair
Diet: Low Fat, Low Cholesterol and Low Sodium
Activity: As tolerated
Activity Restrictions/Additional Instructions:
Dr. Gorge Quezada (outpatient pain management physician) mentioned that his office will call you on Tuesday06/18/24 to set up an appointment for you quickly, preferably within 1 to 2 weeks.
Nonsteroidal Antiinflammatory medications can have many significant side effects (gastrointestinal bleeding, kidney injury/disease, heart attack, stroke etc) -- so you will should to try to limit taking the Ibuprofen (or any NSAID medications) as
much as possible. Although 600 mg Q6H as needed for pain Ibuprofen was prescribed, try to minimize taking it as much as possible for as short of a duration as much as possible.
Instructions: High blood pressure in adults, Pregabalin, Amlodipine, Ibuprofen
Referrals:
Gorge Quezada MD [Active] - in less than 1 week (Hospital Follow-Up for Severe Neuropathic Pain)
Marcela Roberto MD [Active] - in one to two weeks (Due to neuropathic pain -- any additional Vitamin B12 testing? -- even though B12 level was normal in hospital (e.g. intrinsic factor antibodies, methylmalonic acid and/or homocysteine testing))
Nahid Dickerson MD [Active] - in one to two weeks (Hospital Follow-up. May need lumbar puncture.)
Rony Montes MD [Active] - in two to three weeks (Rheumatologic cause of neuropathic pain?)
Elly Rabago DO [Family Provider] - in less than 1 week (Hospital Follow-up.)
Additional Discharge Medication Instructions: Amlodipine, Vitamin D3, Duloxetine, as needed Ibuprofen, and Pregabalin are all new medications.
Outpatient physician(s) can send additional refills and consider increasing Lyrica and Duloxetine if needed.
Gabapentin, Oxycodone-Acetaminophen, and Prednisone have been discontinued.
Prescriptions:
New
duloxetine 30 mg Capsule,Delayed Release(Dr/Ec)
30 mg PO DAILY Qty: 30 1RF
cholecalciferol (vitamin D3) 25 mcg (1,000 unit) Tablet
25 mcg PO DAILY Qty: 30 0RF
ibuprofen 200 mg tablet
600 mg PO Q6H PRN (Reason: Pain) Qty: 100 0RF
amlodipine 2.5 mg tablet
2.5 mg PO DAILY Qty: 30 0RF
pregabalin 100 mg capsule
100 mg PO TID Qty: 42 0RF
Discontinued
prednisone 50 mg tablet
50 mg PO DAILY Qty: 5 0RF
oxycodone-acetaminophen 5-325 mg tablet
1 - 2 tab PO Q6H
gabapentin 300 mg capsule
600 mg PO TID
Discharge Orders:
Discharge Patient (As Directed); Ordered 06/16/24
Ordered By: Bc Geiger
Discharge Date and Time
Discharge Date/Time: 06/16/24 14:48
Print Language: SPANISH
[2024-06-16] MEDS: TYLENOL 650 MG PO (13:31)
[2024-06-16 14:41] VITALS: BP 163/112
[2024-06-17 12:46] LABS: Methylmalonic Acid <0.10 umol/L (0.00-0.40)
== END 2024-06-16 14:48 | disposition home or self-care (01) | DRG 99 ==
LOC: 4 EAST ACU 08:49
PROVIDERS: Clinical Nurse Specialist Family Health; Student in an Organized Health Care Education/Training Program; ADMITTING PHYSICIAN Hospitalist; ATTENDING PHYSICIAN Hospitalist; CONSULT PHYSICIAN Internal Medicine Infectious Disease; CONSULT PHYSICIAN Psychiatry & Neurology Neurology; EMERGENCY PHYSICIAN Emergency Medicine; FAMILY PHYSICIAN Family Medicine; OTHER PHYSICIAN Neurological Surgery
DX: G37.3 Acute transverse myelitis in demyelinating disease of central nervous system (principal); B02.9 Zoster without complications; F41.9 Anxiety disorder, unspecified; E55.9 Vitamin D deficiency, unspecified; D17.71 Benign lipomatous neoplasm of kidney; Z11.52 Encounter for screening for COVID-19
CPT/HCPCS: 70553; 71275; 72156; 72157; 74174; 80048; 80053; 80306; 80307; 81003; 82077; 82306; 82390; 82525; 82550; 82607; 82746; 83036; 83516; 83735; 83921; 84443; 84446; 84484; 85025; 85027; 85652; 86038; 86140; 86225; 86430; 86780; 86790; 87389; 87811; 95886; 95907; 96361; 96374; 96375; 99285; A9575; Q9967

== ENCOUNTER 2024-10-17 12:41 | Emergency (ER) | payer SELFPAY ==
[2024-10-17 12:45] VITALS: BP 143/112
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
[2024-10-17 15:36] VITALS: BP 139/90
[2024-10-17] MEDS: MOTRIN 600 MG PO (15:38)
== END 2024-10-17 15:41 | disposition home or self-care (01) ==
LOC: EMR 12:41
PROVIDERS: EMERGENCY PHYSICIAN Emergency Medicine; FAMILY PHYSICIAN Student in an Organized Health Care Education/Training Program
DX: S16.1XXA Strain of muscle, fascia and tendon at neck level, initial encounter (principal); S09.90XA Unspecified injury of head, initial encounter; V49.40XA Driver injured in collision with unspecified motor vehicles in traffic accident, initial encounter; J45.909 Unspecified asthma, uncomplicated
CPT/HCPCS: 99284; 70450; 71046; 72125

== ENCOUNTER → 2024-10-30 10:01 | Outpatient (REF) | payer BC, OTHER, SELFPAY | LOC: MRI 3T 10:01 | PROVIDERS: ATTENDING PHYSICIAN Psychiatry & Neurology Neurology | DX: R20.9 Unspecified disturbances of skin sensation (principal) | CPT/HCPCS: 70553; 72156; A9575 ==